=== PATIENT | female | born 1980 | race Caucasian/White ===

== ENCOUNTER 2019-02-18 08:21 | Outpatient (CLI) | payer MEDICAID ==
[2019-02-18 12:49] LABS: ALBUMIN 3.8 g/dL (3.2-5.5); ALBUMIN/GLOBULIN RATIO 1.1 (1.0-2.2); ALKALINE PHOSPHATASE 50 IU/L (42-121); ALT ALANINE AMINOTRANSFERASE 14 IU/L (10-60); AST ASPARTATE AMINOTRANSFERASE 14 IU/L (10-42); BILIRUBIN,TOTAL 0.6 mg/dL (0.2-1.0); BUN - BLOOD UREA NITROGEN 17 mg/dL (6-20); CARBON DIOXIDE - CO2 24 mmol/L (21-32); CHLORIDE 107 mmol/L (101-111); CHOL/HDL RATIO 3.2 (<4.4); CHOLESTEROL 163 mg/dL; CREATININE 0.4 mg/dL (0.4-1.0); GFR - MDRD 181 (>89); GLUCOSE 96 mg/dL (70-100); HDL CHOLESTEROL 51 mg/dL; LDL CHOLESTEROL,CALCULATED 104 mg/dL; SODIUM 139 mmol/L (135-145); TOTAL PROTEIN 7.2 g/dL (6.7-8.2); VLDL CHOLESTEROL 8 mg/dL
[2019-02-18 13:00] LABS: BASOPHILS # (AUTO) 0.1 10^3/uL (0.0-0.1); BASOPHILS % (AUTO) 1.3 %; EOSINOPHILS # (AUTO) 0.3 10^3/uL (0.0-0.7); EOSINOPHILS % (AUTO) 4.7 %; HGB - HEMOGLOBIN 12.8 g/dL (12.0-16.0); LYMPHOCYTES # (AUTO) 1.8 10^3/uL (1.5-3.5); LYMPHOCYTES % (AUTO) 30.6 %; MEAN CORPUSCULAR HEMOGLOBIN 24.8 pg (27.0-31.0); MEAN CORPUSCULAR HGB CONC 32.5 g/dL (32.0-36.0); MEAN CORPUSCULAR VOLUME 76.3 fL (81.0-99.0); MEAN PLATELET VOLUME 8.3 fL (7.9-10.8); MONOCYTES # (AUTO) 0.5 10^3/uL (0.0-1.0); MONOCYTES % (AUTO) 8.8 %; NEUTROPHILS # (AUTO) 3.3 10^3/uL (1.5-6.6); NEUTROPHILS % (AUTO) 54.6 %; PLT - PLATELET COUNT 318 10^3/uL (130-450); RED BLOOD COUNT 5.16 10^6/uL (4.20-5.40)
== END 2019-02-18 23:59 | disposition home or self-care (01) ==
LOC: LAB.N 08:21
PROVIDERS: ATTEND Nurse Practitioner
DX: R03.0 Elevated blood-pressure reading, without diagnosis of hypertension (principal)
CPT/HCPCS: 36415; 80053; 80061; 83721; 85025

== ENCOUNTER 2019-07-22 08:00 | Outpatient (CLI) | payer MEDICAID | END 2019-07-22 23:59 | disposition home or self-care (01) | LOC: LAB.R 08:00 | PROVIDERS: ATTEND Nurse Practitioner Gerontology | DX: L30.4 Erythema intertrigo (principal) | CPT/HCPCS: 87070; 87181; 87205 ==

== ENCOUNTER 2019-09-01 08:00 | Outpatient (CLI) | payer MEDICAID | END 2019-09-01 23:59 | disposition home or self-care (01) | LOC: LAB.R 08:00 | PROVIDERS: ATTEND Nurse Practitioner Gerontology | DX: R30.0 Dysuria (principal) | CPT/HCPCS: 87077; 87086 ==

== ENCOUNTER 2019-10-28 08:00 | Outpatient (CLI) | payer MEDICAID | END 2019-10-28 23:59 | disposition home or self-care (01) | LOC: LAB.R 08:00 | PROVIDERS: ATTEND Nurse Practitioner Gerontology | DX: N39.0 Urinary tract infection, site not specified (principal) | CPT/HCPCS: 87086; 87181 ==

== ENCOUNTER 2019-11-10 08:01 | Outpatient (CLI) | payer MEDICAID | END 2019-11-10 23:59 | disposition home or self-care (01) | LOC: LAB.R 08:01 | PROVIDERS: ATTEND Nurse Practitioner Gerontology | DX: N39.0 Urinary tract infection, site not specified (principal) | CPT/HCPCS: 87086 ==

== ENCOUNTER 2019-12-12 08:00 | Outpatient (CLI) | payer MEDICAID | END 2019-12-12 23:59 | disposition home or self-care (01) | LOC: LAB.R 08:00 | PROVIDERS: ATTEND Physician Assistant Medical | DX: L97.309 Non-pressure chronic ulcer of unspecified ankle with unspecified severity (principal); L03.115 Cellulitis of right lower limb | CPT/HCPCS: 87070; 87181; 87205 ==

== ENCOUNTER 2019-12-26 07:00 | Outpatient (CLI) | payer MEDICAID | END 2019-12-26 23:59 | disposition home or self-care (01) | LOC: LAB.R 07:00 | PROVIDERS: ATTEND Physician Assistant Medical | DX: L97.409 Non-pressure chronic ulcer of unspecified heel and midfoot with unspecified severity (principal) | CPT/HCPCS: 87070; 87205 ==

== ENCOUNTER 2020-01-13 07:00 | Outpatient (CLI) | payer MEDICAID ==
[2020-01-13 19:01] LABS: BILIRUBIN,URINE NEGATIVE (NEGATIVE); GLUCOSE, URINE (UA) NEGATIVE (NEGATIVE); KETONES,URINE (UA) 15 mg/dL (NEGATIVE); LEUKOCYTE ESTERASE, URINE LARGE (NEGATIVE); NITRITE,URINE POSITIVE (NEGATIVE); OCCULT BLOOD,URINE LARGE (NEGATIVE); PH,URINE 6.5 PH (5.0-7.5); PROTEIN,URINE TRACE mg/dL (NEGATIVE); UROBILINOGEN,URINE 0.2 (NORMAL) E.U./dL (NORMAL)
[2020-01-13 19:10] LABS: CLARITY,URINE HAZY (CLEAR)
[2020-01-13 19:31] LABS: BACTERIA,URINE Few /HPF (None Seen); SQUAMOUS EPITHELIAL CELL,UR NONE SEEN (<= Few); WBC CLUMPS,URINE PRESENT
== END 2020-01-13 23:59 | disposition home or self-care (01) ==
LOC: LAB.R 07:00
PROVIDERS: ATTEND Physician Assistant Medical
DX: N39.0 Urinary tract infection, site not specified (principal)
CPT/HCPCS: 81001; 87086; 87181

== ENCOUNTER 2020-08-22 18:41 | Emergency (ER) | payer MEDICAID ==
[2020-08-22 20:13] LABS: BASOPHILS # (AUTO) 0.1 10^3/uL (0.0-0.1); BASOPHILS % (AUTO) 0.9 %; EOSINOPHILS # (AUTO) 0.1 10^3/uL (0.0-0.7); EOSINOPHILS % (AUTO) 1.2 %; HGB - HEMOGLOBIN 12.5 g/dL (12.0-16.0); LYMPHOCYTES # (AUTO) 1.5 10^3/uL (1.5-3.5); LYMPHOCYTES % (AUTO) 18.5 %; MEAN CORPUSCULAR HEMOGLOBIN 23.3 pg (27.0-31.0); MEAN CORPUSCULAR HGB CONC 30.6 g/dL (32.0-36.0); MEAN CORPUSCULAR VOLUME 76.3 fL (81.0-99.0); MEAN PLATELET VOLUME 9.2 fL (7.9-10.8); MONOCYTES # (AUTO) 0.5 10^3/uL (0.0-1.0); MONOCYTES % (AUTO) 6.5 %; NEUTROPHILS # (AUTO) 5.9 10^3/uL (1.5-6.6); NEUTROPHILS % (AUTO) 72.4 %; PLT - PLATELET COUNT 379 10^3/uL (130-450); RED BLOOD COUNT 5.36 10^6/uL (4.20-5.40); RED CELL DISTRIBUTION WIDTH 14.8 % (12.0-15.0); WHITE BLOOD COUNT 8.1 x10^3/uL (4.8-10.8)
[2020-08-22 20:25] LABS: BILIRUBIN,TOTAL 0.5 mg/dL (0.2-1.0); CALCIUM 9.2 mg/dL (8.5-10.3); CREATININE 0.9 mg/dL (0.4-1.0); TOTAL PROTEIN 8.2 g/dL (6.7-8.2)
[2020-08-22 20:44] VITALS: BP 125/93
--- NOTE | 2020-08-22 20:57 | XRAY Report ---
PROCEDURE: Calcaneus RT INDICATIONS: non-healing wound TECHNIQUE: Two views of the calcaneus were acquired. COMPARISON: None. FINDINGS: Bones: No fractures or dislocations. No definite focal bony destruction. No suspicious bony lesions . Ulceration and soft tissue wound seen at the posterior hindfoot IMPRESSION: No focal osseous destruction to suggest advanced osteomyelitis. If there is persistent high clinical concern, serial short interval radiographic follow-up, or contrast-enhanced MRI could be performed. Reviewed by: Corby Zavaleta MD on 08/22/2020 8:56 PM PDT Approved by: Corby Zavaleta MD on 08/22/2020 8:56 PM PDT Station ID: [id number]
[2020-08-22] MEDS ORDERED: BACITRACIN ZINC OINT 1 PACKET TOP STA (21:06)
--- NOTE | 2020-08-22 21:17 | ED Physician Documentation ---
History of Present Illness - Stated complaint Stated Complaint: WOUND ON R HEEL - Chief complaint Chief Complaint: Wound - History obtained from History obtained from: Patient - History of Present Illness Timing: Chronic Pain level max: 0 Pain level now: 0 - Additonal information Additional information: 40-year-old female with spina bifida who has chronic nonhealing wounds to her feet, she is seen at wound care. Noticed the right heel wound started admitting a foul odor today. Came in for evaluation. No fevers. No chills. Nothing makes it better or worse Review of Systems Constitutional: denies: Fever, Chills GI: denies: Vomiting Skin: denies: Rash Musculoskeletal: denies: Neck pain, Back pain Neurologic: denies: Headache PD PAST MEDICAL HISTORY - Past Medical History Cardiovascular: None, Other Respiratory: None Neuro: None, Other Endocrine/Autoimmune: None GI: None BRUSH POLISHER: None : Incontinence HEENT: None Psych: None Musculoskeletal: Paraplegia Derm: None - Past Surgical History Past Surgical History: Yes Neuro: RESISTOR TESTER shunt - Present Medications Home Medications: Ambulatory Orders Medication Instructions Recorded Confirmed Aspirin [Aspirin EC] 81 mg PO DAILY 08/21/19 08/03/20 Cholecalciferol (Vitamin D3) 1,000 unit PO DAILY 08/21/19 08/03/20 [Vitamin D3] Methenamine/Sodium Salicylate [Azo 1 tab PO DAILY 08/21/19 08/03/20 Urinary Tract Defense Tab] Multivitamin [Multivitamins] 1 cap PO DAILY 08/21/19 08/03/20 Doxycycline Hyclate 100 mg PO BID #20 capsule 08/22/20 Sulfamethox/Trimeth 800/160 1 each PO BID #20 tablet 08/22/20 [Bactrim Ds 800/160] - Allergies Allergies/Adverse Reactions: Allergies Allergy/AdvReac Type Severity Reaction Status Date / Time latex Allergy Unknown Verified 08/22/20 18:59 - Social History Does the pt smoke?: No Smoking Status: Never smoker Does the pt drink ETOH?: Yes ETOH Use: Wine, Beer Does the pt have substance abuse?: No - Immunizations Immunizations are current?: Yes PD ED PE NORMAL - Vitals Vital signs reviewed: Yes - General General: Alert and oriented X 3, No acute distress - HEENT HEENT: Moist mucous membranes - Neck Neck: Supple, no meningeal sign - Cardiac Cardiac: RRR - Respiratory Respiratory: No respiratory distress, Clear bilaterally - Derm Derm: Warm and dry - Extremities Extremities: Other (R heel - 3x3cm open ulceration with yellow drainage. moderate surrounding erythema.) - Neuro Neuro: Alert and oriented X 3 Results - Vitals Vitals: Vital Signs - 24 hr 08/22/20 08/22/20 08/22/20 18:53 19:21 20:43 Temperature 37.4 C 37.3 C Heart Rate 118 H 107 H 95 Respiratory 22 16 16 Rate Blood Pressure 146/85 H 133/94 H 125/93 H O2 Saturation 100 100 100 Oxygen O2 Source Room air - Labs Labs: Microbiology 08/22/20 20:44 Wound Culture - Preliminary Foot - Right Laboratory Tests 08/22/20 08/22/20 08/22/20 20:05 20:05 20:05 WBC 8.1 RBC 5.36 Hgb 12.5 Hct 40.9 MCV 76.3 L MCH 23.3 L MCHC 30.6 L RDW 14.8 Plt Count 379 MPV 9.2 Neut # (Auto) 5.9 Lymph # (Auto) 1.5 [place] # (Auto) 0.5 Eos # (Auto) 0.1 Baso # (Auto) 0.1 Absolute Nucleated RBC 0.00 Nucleated RBC % 0.0 Sodium 140 Potassium 3.6 Chloride 107 Carbon Dioxide 24 Anion Gap 9.0 BUN 21 H Creatinine 0.9 Estimated GFR (MDRD) 70 L Glucose 101 H Lactic Acid 0.8 Calcium 9.2 Total Bilirubin 0.5 AST 12 ALT 13 Alkaline Phosphatase 65 Total Protein 8.2 Albumin 4.0 Globulin 4.2 Albumin/Globulin Ratio 1.0 Lipase 26 - Rads (name of study) R foot xray Radiology: Prelim report reviewed, EMP read contemporaneously PD MEDICAL DECISION MAKING - ED course Complexity details: reviewed results, re-evaluated patient, considered differential, d/w patient ED course: Wounds were cleansed and bandaged. Tolerated well. We will place on antibiotics. Mepitel was placed over the ulceration. Bacitracin was applied as well. Reviewed her old wound cultures to determine which antibiotics. Doxycycline and Bactrim appear most likely to cover her infection. She has an appointment on Sunday with the [facility] [place]. No evidence of sepsis. Patient counseled regarding signs and symptoms for which I believe and urgent re- evaluation would be necessary. Patient with good understanding of and agreement to plan and is comfortable going home at this time This document was made in part using voice recognition software. While efforts are made to proofread this document, sound alike and grammatical errors may occur. No osteomyelitis No focal osseous destruction to suggest advanced osteomyelitis. If there is persistent high clinical concern, serial short interval radiographic follow-up, or contrast- enhanced MRI could be performed. Departure - Departure Disposition: Home, Self Care Clinical Impression: Non-pressure chronic ulcer of other part of right foot with fat layer exposed, Cellulitis of right lower limb Condition: Good Instructions: ED Infec Skin Cellulitis Follow-Up: Eduar Harris MD [Primary Care Provider] - Within 3 Days Prescriptions: Sulfamethox/Trimeth 800/160 [Bactrim Ds 800/160] 1 each PO BID #20 tablet Doxycycline Hyclate 100 mg PO BID #20 capsule Comments: Take all antibiotics until gone Follow up with the [facility] clinic on Sunday for recheck. Return if you worsen. Discharge Date/Time: 08/22/20 21:28
== END 2020-08-22 21:28 | disposition home or self-care (01) ==
LOC: ED 18:41
DX: L97.412 Non-pressure chronic ulcer of right heel and midfoot with fat layer exposed (principal); L03.115 Cellulitis of right lower limb; G82.20 Paraplegia, unspecified
CPT/HCPCS: 36415; 73650; 80053; 83605; 83690; 85025; 87040; 87070; 87205; 99284; A9270; 87077; 87181

== ENCOUNTER 2020-11-25 16:33 | Emergency (ER) | payer MEDICAID ==
[2020-11-25 17:08] LABS: BASOPHILS # (AUTO) 0.1 10^3/uL (0.0-0.1); EOSINOPHILS # (AUTO) 0.3 10^3/uL (0.0-0.7); HGB - HEMOGLOBIN 12.1 g/dL (12.0-16.0); LYMPHOCYTES # (AUTO) 2.7 10^3/uL (1.5-3.5); MEAN CORPUSCULAR HEMOGLOBIN 24.3 pg (27.0-31.0); MEAN CORPUSCULAR HGB CONC 31.7 g/dL (32.0-36.0); MEAN CORPUSCULAR VOLUME 76.9 fL (81.0-99.0); MEAN PLATELET VOLUME 9.4 fL (7.9-10.8); MONOCYTES # (AUTO) 0.6 10^3/uL (0.0-1.0); MONOCYTES % (AUTO) 7.6 %; NEUTROPHILS # (AUTO) 4.1 10^3/uL (1.5-6.6); NEUTROPHILS % (AUTO) 52.1 %; PLT - PLATELET COUNT 296 10^3/uL (130-450); RED BLOOD COUNT 4.97 10^6/uL (4.20-5.40); WHITE BLOOD COUNT 7.8 x10^3/uL (4.8-10.8)
[2020-11-25 17:14] LABS: INR 1.2 (0.8-1.2); PT - PROTHROMBIN TIME 13.6 secs (9.9-12.6)
--- NOTE | 2020-11-25 17:15 | ED Physician Documentation ---
History of Present Illness - Stated complaint Stated Complaint: LEFT LEG IS COLD AND PURPLE - Chief complaint Chief Complaint: Ext Problem - History obtained from History obtained from: Patient - Additonal information Additional information: Patient is sent to the emergency department from wound care clinic after her physician there, Dr. Dewey, noted the patient's foot to a left foot to be cold and cyanotic in appearance. He could not get a pulse on the patient and so he is sent her here for further evaluation. The patient is a paraplegic, secondary to spina bifida, and states that she does not really have any feeling in the foot. Patient states that she has noticed the foot intermittently having a bluish-purple appearance, and that this does not seem much different than previously. No she denies feeling ill in any other way. No swelling of the leg but is unusual. No other complaints at this time. Review of Systems Ten Systems: 10 systems reviewed and negative Constitutional: reports: Reviewed and negative Eyes: reports: Reviewed and negative Ears: reports: Reviewed and negative Nose: reports: Reviewed and negative Throat: reports: Reviewed and negative Cardiac: reports: Reviewed and negative Respiratory: reports: Reviewed and negative GI: reports: Reviewed and negative : reports: Reviewed and negative Skin: reports: Other (Discoloration) Musculoskeletal: reports: Reviewed and negative Neurologic: reports: Reviewed and negative Psychiatric: reports: Reviewed and negative Endocrine: reports: Reviewed and negative Immunocompromised: reports: Reviewed and negative PD PAST MEDICAL HISTORY - Past Medical History Cardiovascular: None, Other Respiratory: None Neuro: None, Other Endocrine/Autoimmune: None GI: None BIOLOGY LABORATORY ASSISTANT: None : Incontinence HEENT: None Psych: None Musculoskeletal: Paraplegia Derm: None - Past Surgical History Past Surgical History: Yes Neuro: FLOORS BUFFER shunt - Present Medications Home Medications: Ambulatory Orders Medication Instructions Recorded Confirmed Aspirin [Aspirin EC] 81 mg PO DAILY 08/21/19 11/18/20 Cholecalciferol (Vitamin D3) 1,000 unit PO DAILY 08/21/19 11/18/20 [Vitamin D3] Methenamine/Sodium Salicylate [Azo 1 tab PO DAILY 08/21/19 11/18/20 Urinary Tract Defense Tab] Multivitamin [Multivitamins] 1 cap PO DAILY 08/21/19 11/18/20 Calcium Carbonate [Calcium] 500 mg PO DAILY 09/06/20 11/18/20 - Allergies Allergies/Adverse Reactions: Allergies Allergy/AdvReac Type Severity Reaction Status Date / Time latex Allergy Unknown Verified 11/25/20 16:42 - Social History Does the pt smoke?: No Smoking Status: Never smoker Does the pt drink ETOH?: Yes Does the pt have substance abuse?: No - Immunizations Immunizations are current?: Yes PD ED PE NORMAL - Vitals Vital signs reviewed: Yes - General General: Alert and oriented X 3, No acute distress - HEENT HEENT: Atraumatic, PERRL, EOMI, Moist mucous membranes - Neck Neck: Supple, no meningeal sign - Cardiac Cardiac: RRR, No murmur, Other (No palpable pulses in either foot.) - Respiratory Respiratory: No respiratory distress, Clear bilaterally - Abdomen Abdomen: Soft, Non tender, Non distended - Derm Derm: No rash, Other (Left foot is cold, with purplish discoloration. Normal color above the ankle compared with the right leg.) - Extremities Extremities: No deformity - Neuro Neuro: Alert and oriented X 3 - Psych Psych: Normal mood, Normal affect Results - Vitals Vitals: Vital Signs - 24 hr 11/25/20 11/25/20 16:35 18:58 Temperature 37 C 37.9 C Heart Rate 122 H 110 H Respiratory 17 20 Rate Blood Pressure 157/64 H 131/108 H O2 Saturation 100 100 Oxygen O2 Source Room air - Labs Labs: Laboratory Tests 11/25/20 11/25/20 11/25/20 17:02 17:02 17:02 WBC 7.8 RBC 4.97 Hgb 12.1 Hct 38.2 MCV 76.9 L MCH 24.3 L MCHC 31.7 L RDW 16.0 H Plt Count 296 MPV 9.4 Neut # (Auto) 4.1 Lymph # (Auto) 2.7 [place] # (Auto) 0.6 Eos # (Auto) 0.3 Baso # (Auto) 0.1 Absolute Nucleated RBC 0.00 Nucleated RBC % 0.0 PT INR Sodium 142 Potassium 3.6 Chloride 103 Carbon Dioxide 22 Anion Gap 17.0 H BUN 17 Creatinine 0.4 Estimated GFR (MDRD) 179 Glucose 88 Lactic Acid 0.8 Calcium 9.1 Total Bilirubin 0.7 AST 14 ALT 14 Alkaline Phosphatase 54 Total Protein 7.3 Albumin 3.9 Globulin 3.4 Albumin/Globulin Ratio 1.1 11/25/20 17:02 WBC RBC Hgb Hct MCV MCH MCHC RDW Plt Count MPV Neut # (Auto) Lymph # (Auto) [place] # (Auto) Eos # (Auto) Baso # (Auto) Absolute Nucleated RBC Nucleated RBC % PT 13.6 H INR 1.2 Sodium Potassium Chloride Carbon Dioxide Anion Gap BUN Creatinine Estimated GFR (MDRD) Glucose Lactic Acid Calcium Total Bilirubin AST ALT Alkaline Phosphatase Total Protein Albumin Globulin Albumin/Globulin Ratio - Rads (name of study) US LLE Radiology: Final report received, See rad report (No DVT) PD MEDICAL DECISION MAKING - ED course Complexity details: reviewed old records, reviewed results, re-evaluated patient, considered differential, d/w patient ED course: The patient did not have palpable pulses in her left foot, so I did attempt to find pulses with the Doppler. However, this was unsuccessful. An ultrasound of the patient's left lower extremity was performed and no DVT was found. The optics technical officer reported seeing a tiny bit of arterial flow in the patient's fo ot. The patient's labs were unremarkable, with a normal white blood cell count and normal lactate. CT angiogram of the abdomen with runoffs was performed and showed patent arteries all through the right lower extremity, but with decreasing patency distal to the popliteal artery. The patient was given a dose of Lovenox. The acuity of the occlusion/thrombosis was unclear, and as such, it was felt that vascular specialist should be consulted for further management recommendations. At this point in time, the patient's been signed out to Dr. Presley, pending vascular consultation and ultimate disposition. Patient is stable at this time.
[2020-11-25 17:21] LABS: ALBUMIN 3.9 g/dL (3.2-5.5); ALBUMIN/GLOBULIN RATIO 1.1 (1.0-2.2); BILIRUBIN,TOTAL 0.7 mg/dL (0.2-1.0); CALCIUM 9.1 mg/dL (8.5-10.3); CREATININE 0.4 mg/dL (0.4-1.0); TOTAL PROTEIN 7.3 g/dL (6.7-8.2)
[2020-11-25] MEDS ORDERED: IOVERSOL 320 100 ML VIAL IVP ONE ×2 (18:06→20:07)
--- NOTE | 2020-11-25 18:07 | Ultrasound Report ---
PROCEDURE: Duplex Ext Veins Left INDICATIONS: pain/swelling TECHNIQUE: Real-time imaging, as well as color and pulse Doppler interrogation, were performed of the lower extr emity deep veins from the inguinal ligament to the popliteal fossa. COMPARISON: None. FINDINGS: Examination is limited secondary to patient mobility factors. There is a 14 mm ill-defined hypoechoic focus within the medial ankle. The deep veins are normally compressible, and free of intra luminal thrombus. Color and pulse Doppler demonstrate normal phasic intraluminal flow. There is nor mal augmentation response to distal compression maneuver. IMPRESSION: 1. No evidence of left lower extremity DVT. 2. Indeterminate hypoechoic focus within the medial ankle. This could represent an abscess or evolvin g hematoma. Follow-up ultrasound in one month is recommended to ensure resolution. Reviewed by: Preeti Collazo MD on 11/25/2020 6:06 PM [facility] Approved by: Preeti Collazo MD on 11/25/2020 6:06 PM [facility] Station ID: [id number]
--- NOTE | 2020-11-25 19:04 | CT Report ---
PROCEDURE: ANGIO ABD RUNOFF W/WO - B/L INDICATIONS: LLE cold, pulse undetectable CONTRAST: IV CONTRAST: Optiray 320 ml: 125 PO CONTRAST: *NO PO CONTRAST TECHNIQUE: After the administration of intravenous contrast, 2 and 5 mm sections acquired from T12 to the feet, with optional delayed image acquisition from the knees to the feet. 3-dimensional maximum intensity projection (MIP) coronal and sagittal reformats, and/or 3-dimensional volume rendering reformatting w as then performed. For radiation dose reduction, the following was used: automated exposure control , adjustment of mA and/or kV according to patient size. COMPARISON: None. FINDINGS: Image quality: Excellent. 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 Extravascular tissues: Lung bases are clear. Heart size is normal. Liver and spleen are normal in size and enhancement. Gallbladder is grossly unremarkable Biliary system is non dilated. Pancreas enhances normally. No adrenal nodules. Kidneys are normal in size and enhancement. Moderate left hy dronephrosis. Left renal pelvic calculus measuring 10 mm. Non opacified bowel loops demonstrate norm al wall thickness and enhancement. No pneumoperitoneum. Small amount of free fluid within the pelvis . Peritoneal catheter is present, tip of which is in the left hemipelvis laterally.. No retroperiton eal or mesenteric adenopathy. No ventral hernias. Severe urinary bladder wall thickening. 7 mm calcu dread within the left posterior urinary bladder. 3 mm calculus within the right posterior urinary bladd er. No inguinal hernias. Right inguinal adenopathy is present, measuring 11 mm short axis. No suspici ous bony lesions. No vertebral body compression fractures. Abdominal aorta: Widely patent without aneurysm nor dissection. Right lower extremity: Common, internal, and axial iliac arteries are patent. Common, profunda, and superficial femoral arteries are patent. Above and below knee popliteal artery is patent. Anterior ti bial artery, tibioperoneal trunk, peroneal and posterior tibial arteries are patent. Scattered region s of bony deformity and sclerosis within the foot. Left lower extremity: Common, internal, and external iliac arteries are patent. Common, profunda, an d superficial femoral arteries are patent. Above and below knee popliteal artery is patent. Variant t rifurcation anatomy. Tibial peroneal trunk gives rise to the anterior tibial and peroneal arteries. D istal anterior tibial and peroneal arteries are not well seen, possibly occluded. Peroneal artery is not well seen distally. IMPRESSION: 1. Left renal pelvic calculus associated with moderate left hydronephrosis. 2. Urinary bladder calculi. 3. Urinary bladder thickening, suggestive of cystitis. 4. No significant inflow stenosis bilaterally. 5. No significant outflow stenosis bilaterally. 6. Patent right runoff vessels. 7. Nonopacification of the distal left-sided runoff vessels, compatible with occlusion/thrombus. 8. Extensive bony deformity as described above. 9. Small amount of free fluid within the pelvis, within physiological limits in a demonstrating femal e. Reviewed by: Preeti Collazo MD on 11/25/2020 7:02 PM PST Approved by: Preeti Collazo MD on 11/25/2020 7:02 PM PST Station ID: [id number]
[2020-11-25] MEDS ORDERED: ENOXAPARIN 40 MG/0.4 ML SYRINGE SUBQ STA (19:36)
--- NOTE | 2020-11-25 20:22 | ED Physician Documentation ---
ED Addendum - Addendum Addendum: 11/25/20 20:22 Patient endorsed to me by Dr. Chacon. She is no acute distress. Pulse not palpable in the left lower extremity. Discussed results with patient and we are awaiting vascular recommendations from [facility]. 11/25/20 20:39 d/w Dr. Angel Nevarez, vascular surgery at [place] - since patient states the LLE swelling/erythema is old and there doesn't appear to be an acute issue, she may follow up in clinic tomorrow morning. Patient aware and agreeable. I also discussed with her that she has asymptomatic renal/urinary bladder stones. return precautions given.
[2020-11-25 21:02] VITALS: BP 121/88
--- OUTSIDE RECORDS SUMMARY | 2020-12-01 01:19 | EXTERNAL MEDICAL SUMMARY RPT | Continuity of Care Document ---
:1980 Demographics Phone Unavailable Preferred Language Niuean Marital Status Unknown Anabaptist Affiliation Unknown Race Unknown Ethnic Group Unknown Author Organization [facility] Address [address] [place] [address] Phone Care Team Providers Name Role Phone MD Unavailable Unavailable Demmler Unavailable Unavailable Problems date description facility 2020-09-03 13:00 METHICILLIN [facility] CAUSING DIS CLASSD [facility] 2020-09-03 13:00 KLEBSIELLA PNEUMONIAE [facility] CAUSE OF DISEASES CLASSD [facility] 2020-09-03 13:00 VENOUS INSUFFICIENCY (CHRONIC) [facility] ([facility]) 2020-09-03 13:00 CELLULITIS OF RIGHT LOWER LIMB [facility] 2020-09-03 13:00 NON-PRS CHR ULC OF R HEEL/[facility] W MSL INVL W/O EVD OF [place] 2020-09-03 13:00 NON-PRS CHRONIC ULCER OTH [facility] LEFT FOOT W FAT LAYER EXPOSED 2020-09-06 14:30 METHICILLIN [facility] CAUSING DIS CLASSD [facility] 2020-09-06 14:30 KLEBSIELLA PNEUMONIAE [facility] CAUSE OF DISEASES CLASSD [facility] 2020-09-06 14:30 VENOUS INSUFFICIENCY (CHRONIC) [facility] ([facility]) 2020-09-06 14:30 CELLULITIS OF RIGHT LOWER LIMB [facility] 2020-09-06 14:30 NON-PRS CHR ULC OF R HEEL/MIDFT [facility] W MSL INVL W/O EVD OF [place] 2020-09-06 14:30 NON-PRS CHRONIC ULCER OTH [facility] LEFT FOOT W FAT LAYER EXPOSED 2020-09-09 15:30 METHICILLIN [facility] CAUSING DIS CLASSD [facility] 2020-09-09 15:30 KLEBSIELLA PNEUMONIAE [facility] CAUSE OF DISEASES CLASSD [facility] 2020-09-09 15:30 VENOUS INSUFFICIENCY (CHRONIC) [facility] ([facility]) 2020-09-09 15:30 CELLULITIS OF RIGHT LOWER LIMB [facility] 2020-09-09 15:30 NON-PRS CHR ULC OF R HEEL/MIDFT [facility] W MSL INVL W/O EVD OF [place] 2020-09-09 15:30 NON-PRS CHRONIC ULCER OTH PRT [facility] LEFT FOOT W FAT LAYER EXPOSED 2020-09-14 10:15 [facility] 2020-09-14 10:15 KLEBSIELLA PNEUMONIAE [facility] 2020-09-14 10:15 VENOUS INSUFFICIENCY (CHRONIC) [facility] ([facility]) 2020-09-14 10:15 CELLULITIS OF RIGHT LOWER LIMB [facility] 2020-09-14 10:15 NON-PRS CHR ULC OF R HEEL/[facility] W MSL INVL W/O EVD OF [place] 2020-09-14 10:15 NON-PRS CHRONIC ULCER OTH [facility] LEFT FOOT W FAT LAYER EXPOSED 2020-09-17 10:00 METHICILLIN SUSCEP STAPH [facility] CAUSING DIS CLASSD [facility] 2020-09-17 10:00 KLEBSIELLA PNEUMONIAE [facility] 2020-09-17 10:00 VENOUS INSUFFICIENCY (CHRONIC) [facility] ([facility]) 2020-09-17 10:00 CELLULITIS OF RIGHT LOWER LIMB [facility] 2020-09-17 10:00 NON-PRS [facility]/O EVD OF [place] 2020-09-17 10:00 NON-PRS CHRONIC ULCER OTH WVT [facility] LEFT FOOT W FAT LAYER EXPOSED 2020-09-21 13:00 METHICILLIN SUSCEP STAPH INFCT [facility] CAUSING DIS CLASSD [facility] 2020-09-21 13:00 KLEBSIELLA PNEUMONIAE [facility] CAUSE OF DISEASES CLASSD [facility] 2020-09-21 13:00 VENOUS INSUFFICIENCY (CHRONIC) [facility] ([facility]) 2020-09-21 13:00 CELLULITIS OF RIGHT LOWER LIMB [facility] 2020-09-21 13:00 NON-PRS CHR ULC OF R HEEL/MIDFT [facility] W MSL INVL W/O EVD OF [place] 2020-09-21 13:00 NON-PRS CHRONIC ULCER OTH [facility] LEFT FOOT W FAT LAYER EXPOSED 2020-09-24 13:00 METHICILLIN SUSCEP STAPH [facility] CAUSING DIS CLASSD [facility] 2020-09-24 13:00 KLEBSIELLA PNEUMONIAE [facility] CAUSE OF DISEASES CLASSD [facility] 2020-09-24 13:00 VENOUS INSUFFICIENCY (CHRONIC) [facility] ([facility]) 2020-09-24 13:00 CELLULITIS OF RIGHT LOWER LIMB [facility] 2020-09-24 13:00 NON-PRS CHR ULC OF R HEEL/MIDFT [facility] W MSL INVL W/O EVD OF [place] 2020-09-24 13:00 NON-PRS CHRONIC ULCER OTH [facility] LEFT FOOT W FAT LAYER EXPOSED 2020-09-28 15:30 METHICILLIN SUSCEP STAPH [facility] CAUSING DIS CLASSD [facility] 2020-09-28 15:30 KLEBSIELLA PNEUMONIAE [facility] CAUSE OF DISEASES CLASSD [facility] 2020-09-28 15:30 VENOUS INSUFFICIENCY (CHRONIC) [facility] ([facility]) 2020-09-28 15:30 CELLULITIS OF RIGHT LOWER LIMB [facility] 2020-09-28 15:30 NON-PRS CHR ULC OF R HEEL/[facility] W MSL INVL W/O EVD OF [place] 2020-09-28 15:30 NON-PRS CHRONIC ULCER OTH PRT [facility] LEFT FOOT W FAT LAYER EXPOSED 2020-10-01 13:00 [facility] 2020-10-01 13:00 KLEBSIELLA PNEUMONIAE [facility] CAUSE OF DISEASES CLASSD [facility] 2020-10-01 13:00 VENOUS INSUFFICIENCY (CHRONIC) [facility] ([facility]) 2020-10-01 13:00 CELLULITIS OF RIGHT LOWER LIMB [facility] 2020-10-01 13:00 NON-PRS CHR ULC OF R HEEL/MIDFT [facility] W MSL INVL W/O EVD OF [place] 2020-10-01 13:00 NON-PRS CHRONIC ULCER OTH [facility] LEFT FOOT W FAT LAYER EXPOSED 2020-10-05 14:45 METHICILLIN SUSCEP [facility] CAUSING DIS CLASSD [facility] 2020-10-05 14:45 KLEBSIELLA PNEUMONIAE THE [facility] CAUSE OF DISEASES CLASSD [facility] 2020-10-05 14:45 VENOUS INSUFFICIENCY (CHRONIC) [facility] ([facility]) 2020-10-05 14:45 CELLULITIS OF RIGHT LOWER LIMB [facility] 2020-10-05 14:45 NON-PRS [facility] W/O EVD OF [place] 2020-10-05 14:45 NON-PRS CHRONIC ULCER OTH WVT [facility] LEFT FOOT W FAT LAYER EXPOSED 2020-10-08 10:00 [facility]IN [facility] 2020-10-08 10:00 KLEBSIELLA PNEUMONIAE [facility] CAUSE OF DISEASES CLASSD [facility] 2020-10-08 10:00 VENOUS INSUFFICIENCY (CHRONIC) [facility] ([facility]) 2020-10-08 10:00 CELLULITIS OF RIGHT LOWER LIMB [facility] 2020-10-08 10:00 NON-PRS CHR ULC OF R HEEL/MIDFT [facility] W MSL INVL W/O EVD OF [place] 2020-10-08 10:00 NON-PRS CHRONIC ULCER OTH PRT [facility] LEFT FOOT W FAT LAYER EXPOSED 2020-10-12 14:15 METHICILLIN SUSCEP STAPH INFCT [facility] CAUSING DIS CLASSD [facility] 2020-10-12 14:15 KLEBSIELLA PNEUMONIAE [facility] CAUSE OF DISEASES CLASSD [facility] 2020-10-12 14:15 VENOUS INSUFFICIENCY (CHRONIC) [facility] ([facility]) 2020-10-12 14:15 CELLULITIS OF RIGHT LOWER LIMB [facility] 2020-10-12 14:15 NON-PRS CHR ULC OF R HEEL/MIDFT [facility] W MSL INVL W/O EVD OF [place] 2020-10-12 14:15 NON-PRS CHRONIC ULCER OTH [facility] LEFT FOOT W FAT LAYER EXPOSED 2020-10-20 13:39 [facility]ILLIN [facility] 2020-10-20 13:39 KLEBSIELLA PNEUMONIAE [facility] CAUSE OF DISEASES CLASSD [facility] 2020-10-20 13:39 VENOUS INSUFFICIENCY (CHRONIC) [facility] ([facility]) 2020-10-20 13:39 CELLULITIS OF RIGHT LOWER LIMB [facility] 2020-10-20 13:39 NON-PRS CHR ULC OF R HEEL/MIDFT [facility] W MSL INVL W/O EVD OF [place] 2020-10-20 13:39 NON-PRS CHRONIC ULCER OTH WVT [facility] LEFT FOOT W FAT LAYER EXPOSED 2020-10-20 14:00 METHICILLIN SUSCEP STAPH [facility] CAUSING DIS CLASSD [facility] 2020-10-20 14:00 KLEBSIELLA PNEUMONIAE [facility] CAUSE OF DISEASES CLASSD [facility] 2020-10-20 14:00 VENOUS INSUFFICIENCY (CHRONIC) [facility] ([facility]) 2020-10-20 14:00 CELLULITIS OF RIGHT LOWER LIMB [facility] 2020-10-20 14:00 NON-PRS CHR ULC OF R HEEL/MIDFT [facility] W MSL INVL W/O EVD OF [place] 2020-10-20 14:00 NON-PRS CHRONIC ULCER OTH PRT [facility] LEFT FOOT W FAT LAYER EXPOSED 2020-10-26 00:00:00 Health-related behavior [facility] 2020-10-26 00:00:00 Tobacco use and exposure [facility] [place] 2020-10-26 00:00:00 Exercise [facility] 2020-10-26 00:00[facility]00 [facility] 2020-10-26 00:00:[facility] 2020-10-26 00:00:00 Tobacco smoking status NHIS [facility] [place] [facility] 2020-10-26 00:00:00 Total score? [facility] 2020-10-27 15:00 METHICILLIN SUSCEP [facility] CAUSING DIS CLASSD [facility] 2020-10-27 15:00 KLEBSIELLA PNEUMONIAE [facility] CAUSE OF DISEASES CLASSD [facility] 2020-10-27 15:00 VENOUS INSUFFICIENCY (CHRONIC) [facility] ([facility]) 2020-10-27 15:00 CELLULITIS OF RIGHT LOWER LIMB [facility] 2020-10-27 15:00 NON-PRS CHR ULC OF R HEEL/MIDFT [facility] W MSL INVL W/O EVD OF [place] 2020-10-27 15:00 NON-PRS CHRONIC ULCER OTH PRT [facility] LEFT FOOT W FAT LAYER EXPOSED 2020-11-03 11:00 [facility] 2020-11-03 11:00 KLEBSIELLA PNEUMONIAE [facility] CAUSE OF DISEASES CLASSD [facility] 2020-11-03 11:00 VENOUS INSUFFICIENCY (CHRONIC) [facility] ([facility]) 2020-11-03 11:00 CELLULITIS OF RIGHT LOWER LIMB [facility] 2020-11-03 11:00 NON-PRS CHR ULC OF R HEEL/MIDFT [facility] W MSL INVL W/O EVD OF [place] 2020-11-03 11:00 NON-PRS CHRONIC ULCER OTH PRT [facility] LEFT FOOT W FAT LAYER EXPOSED 2020-11-10 14:30 [facility] 2020-11-10 14:30 KLEBSIELLA PNEUMONIAE [facility] CAUSE OF DISEASES CLASSD [facility] 2020-11-10 14:30 VENOUS INSUFFICIENCY (CHRONIC) [facility] ([facility]) 2020-11-10 14:30 CELLULITIS OF RIGHT LOWER LIMB [facility] 2020-11-10 14:30 NON-PRS CHR ULC OF R HEEL/[facility] W MSL INVL W/O EVD OF [place] 2020-11-10 14:30 NON-PRS CHRONIC ULCER OTH [facility] LEFT FOOT W FAT LAYER EXPOSED 2020-11-18 13:00 [facility] 2020-11-18 13:00 KLEBSIELLA PNEUMONIAE [facility] CAUSE OF DISEASES CLASSD [facility] 2020-11-18 13:00 VENOUS INSUFFICIENCY (CHRONIC) [facility] ([facility]) 2020-11-18 13:00 CELLULITIS OF RIGHT LOWER LIMB [facility] 2020-11-18 13:00 NON-PRS CHR ULC OF R HEEL/MIDFT [facility] W MSL INVL W/O EVD OF [place] 2020-11-18 13:00 NON-PRS CHRONIC ULCER OTH PRT [facility] LEFT FOOT W FAT LAYER EXPOSED 2020-11-25 14:00 METHICILLIN SUSCEP STAPH [facility] CAUSING DIS CLASSD [facility] 2020-11-25 14:00 KLEBSIELLA PNEUMONIAE [facility] 2020-11-25 14:00 VENOUS INSUFFICIENCY (CHRONIC) [facility] ([facility]) 2020-11-25 14:00 CELLULITIS OF RIGHT LOWER LIMB [facility] 2020-11-25 14:00 NON-PRS [facility] W MSL INVL W/O EVD OF [place] 2020-11-25 14:00 NON-PRS CHRONIC ULCER OTH PRT [facility] LEFT FOOT W FAT LAYER EXPOSED 2020-11-25 14:54 METHICILLIN SUSCEP STAPH INFCT [facility] CAUSING DIS CLASSD [facility] 2020-11-25 14:54 KLEBSIELLA PNEUMONIAE [facility] CAUSE OF DISEASES CLASSD [facility] 2020-11-25 14:54 VENOUS INSUFFICIENCY (CHRONIC) [facility] ([facility]) 2020-11-25 14:54 CELLULITIS OF RIGHT LOWER LIMB [facility] 2020-11-25 14:54 NON-PRS CHR [facility] W MSL INVL W/O EVD OF [place] 2020-11-25 14:54 NON-PRS CHRONIC ULCER OTH PRT [facility] LEFT FOOT W FAT LAYER EXPOSED Allergies date description facility IODINATED DIAGNOSTIC AGENTS [facility] AMOXICILLIN-POT CLAVULANATE [facility] SEASONAL [facility] ADHESIVE \T\ TAPE [facility] AMLODIPINE [facility] BACITRACIN [facility] BEE VENOM [facility] BENAZEPRIL [facility] CEFACLOR [facility] DIMENHYDRINATE [facility] DOXEPIN [facility] D[facility]OXETINE [facility] FLUTICASONE [facility]IONATE [facility] LAMOTRIGINE [facility] LITHIUM [facility] LOSARTAN [facility] METOPROLOL [facility] NAPROXEN [facility] NEOMYCIN [facility] NICKEL [facility] POLLEN EXTRACT [facility] QUETIAPINE [facility] RISPERIDONE [facility] SULFAMETHOXAZOLE-TRIMETHOPRIM [facility] SUMATRIPTAN [facility] TRAZODONE [facility] VARENICLINE [facility] VENLAFAXINE [facility] WASP VENOM PROTEIN [facility] ERYTHROMYCIN ETHYLSUCCINATE [facility] PAMELOR [facility] NO KNOWN ENVIRONMENTAL ALLERGIES [facility] PENICILLINS [facility] STATINS [facility] CELERY [facility] CODEINE [facility] PENICILLIN [facility] NO KNOWN ALLERGIES [facility] EGG WHITE [facility] PEANUT [facility] SOY PROTEIN [facility] NO ALLERGY INFORMATION AVAILABLE [facility]ENICILLINS [facility] AD[facility] ANTIHISTAMINES - ALKYLAMINE [facility] NO KNOWN ALLERGIES [facility] LATEX [facility] GRAMINEAE POLLENS [facility] DAPAGLIFLOZIN [facility] CANAGLIFLOZIN [facility] MORPHINE [facility] CODEINE [facility] CEPHALEXIN [facility] CLINDAMYCIN [facility] BACITRACIN [facility] SIMVASTATIN [facility] AMOX[facility]ILLIN [facility] GABAPENTIN [facility] TIZANIDINE [facility] LEVOFLOXACIN [facility] LISINOPRIL [facility] BEE VENOM PROTEIN (HONEY BEE) [facility] NEBIVOLOL [facility] ASPIRIN [facility] AMOXICILLIN-POT CLAVULANATE [facility] TRIPROLIDINE-PSEUDOEPHEDRINE [facility] CIPROFLOXACIN (BULK) [facility] latex [facility] Results Social History date description facility 2020-10-26 00:00:00 Never smoker [facility] Social History date description facility 2020-10-26 00:00:00 Never smoker [facility] date description facility [id number]
== END 2020-11-25 21:17 | disposition home or self-care (01) ==
LOC: ED 16:33
DX: I73.9 Peripheral vascular disease, unspecified (principal); I99.8 Other disorder of circulatory system; G82.20 Paraplegia, unspecified
CPT/HCPCS: 75635; 80053; 83605; 85025; 85610; 93971; 96372; 99284; J1650; Q9967

== ENCOUNTER 2020-12-17 10:09 | Outpatient (CLI) | payer MEDICAID ==
[2020-12-17 11:43] LABS: BASOPHILS # (AUTO) 0.1 10^3/uL (0.0-0.1); BASOPHILS % (AUTO) 0.9 %; EOSINOPHILS # (AUTO) 0.2 10^3/uL (0.0-0.7); EOSINOPHILS % (AUTO) 3.4 %; HGB - HEMOGLOBIN 12.3 g/dL (12.0-16.0); LYMPHOCYTES # (AUTO) 2.1 10^3/uL (1.5-3.5); LYMPHOCYTES % (AUTO) 36.6 %; MEAN CORPUSCULAR HEMOGLOBIN 23.9 pg (27.0-31.0); MEAN CORPUSCULAR HGB CONC 30.4 g/dL (32.0-36.0); MEAN CORPUSCULAR VOLUME 78.6 fL (81.0-99.0); MEAN PLATELET VOLUME 9.9 fL (7.9-10.8); MONOCYTES # (AUTO) 0.5 10^3/uL (0.0-1.0); MONOCYTES % (AUTO) 9.5 %; NEUTROPHILS # (AUTO) 2.8 10^3/uL (1.5-6.6); NEUTROPHILS % (AUTO) 49.4 %; PLT - PLATELET COUNT 320 10^3/uL (130-450); RED BLOOD COUNT 5.14 10^6/uL (4.20-5.40); RED CELL DISTRIBUTION WIDTH 15.8 % (12.0-15.0); WHITE BLOOD COUNT 5.7 x10^3/uL (4.8-10.8)
[2020-12-17 11:59] LABS: ALBUMIN 3.8 g/dL (3.2-5.5); ALBUMIN/GLOBULIN RATIO 1.2 (1.0-2.2); BILIRUBIN,TOTAL 0.6 mg/dL (0.2-1.0); CALCIUM 8.8 mg/dL (8.5-10.3); CREATININE 0.4 mg/dL (0.4-1.0); TOTAL PROTEIN 7.1 g/dL (6.7-8.2)
== END 2020-12-17 10:10 | disposition home or self-care (01) ==
LOC: LAB.N 10:09
PROVIDERS: ATTEND Physician Assistant Medical
DX: R51.9 Headache, unspecified (principal)
CPT/HCPCS: 36415; 80053; 85025

== ENCOUNTER 2020-12-18 09:51 | Outpatient (CLI) | payer MEDICAID ==
--- NOTE | 2020-12-18 10:36 | CT Report ---
PROCEDURE: HEAD WO INDICATIONS: HYDROCEPHALUS WITH OPERATING SHUNT TECHNIQUE: Noncontrast 4.5 mm thick angled axial sections acquired from the foramen magnum to the vertex. For r adiation dose reduction, the following was used: automated exposure control, adjustment of mA and/or kV according to patient size. COMPARISON: No prior head imaging is available for review at the time of this dictation. FINDINGS: Image quality: Excellent. CSF spaces: There is a right parietal approach ventriculostomy catheter, with the tip seen within th e posterior horn of the right lateral ventricle. No sindy hydrocephalus can be seen. Basal cisterns a re patent. No extra-axial fluid collections. 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 N o midline shift. No intracranial masses or hemorrhage. Schaeffer-white matter interface is normal. Skull and face: Calvarium and visualized facial bones are intact, without suspicious lesions. Sinuses: Visualized sinuses and mastoids are clear. IMPRESSION: Right parietal approach ventriculostomy catheter, which appears to be in satisfactory position. No fr ank hydrocephalus. 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 Reviewed by: Marck Gee MD on 12/18/2020 9:[address] [facility] Approved by: Marck Gee MD on 12/18/2020 9:[address] [facility] Station ID: [id number]
--- NOTE | 2020-12-18 10:37 | XRAY Report ---
PROCEDURE: Abdomen 1 View X-Ray INDICATIONS: HYDROCEPHALUS WITH OPERATING SHUNT TECHNIQUE: 1 view of the abdomen were acquired. COMPARISON: None. FINDINGS: Surgical changes and devices: Partially visualized a presumed ventriculoperitoneal shunt is seen. The re are multiple twists in the catheter projecting in the right upper quadrant.. Bowel: No pneumoperitoneum. The bowel gas pattern is normal. Soft tissues: No masses; visualized solid organ contours appear normal in size. No suspicious abdom inal calcifications. Bones: No suspicious bony abnormalities. Severe bilateral chronic hip dysplasia. Lumbar spondylosis and scoliosis. IMPRESSION: Partially visualized ventriculoperitoneal shunt with the tip projecting in the pelvis. Of note, there are numerous twist of the catheter projecting in the right upper quadrant. No definite acute kink is seen. Recommend clinical correlation to determine functional status. Reviewed by: Corby Zavaleta MD on 12/18/2020 10:[address] [facility] Approved by: Corby Zavaleta MD on 12/18/2020 10:[address] [facility] Station ID: [id number]
--- NOTE | 2020-12-18 10:39 | XRAY Report ---
PROCEDURE: Skull 2 View INDICATIONS: HYDROCEPHALUS WITH OPERATING SHUNT TECHNIQUE: 2 view(s) of the skull acquired. COMPARISON: Correlation is made with the accompanying head CT and chest and abdomen plain films 12/18 FINDINGS: There is a right parietal approach ventriculostomy catheter seen, which is better seen on the accompanying CT examination. The limits of this study, no findings of kinks or discontinuities ca n be seen involving the shunt catheter tubing. Bones: No fractures. No suspicious bony lesions. Visualized sinuses appear clear. Soft tissues: No soft tissue calcifications. No suspicious soft tissue densities. IMPRESSION: Right frontal approach ventriculostomy catheter, without focal abnormality seen on these images. Reviewed by: Marck Gee MD on 12/18/2020 9:37 AM [facility] Approved by: Marck Gee MD on 12/18/2020 9:37 AM [facility] Station ID: [id number]
--- NOTE | 2020-12-18 10:42 | XRAY Report ---
PROCEDURE: Chest 1 View X-Ray INDICATIONS: HYDROCEPHALUS WITH OPERATING SHUNT TECHNIQUE: One view of the chest was acquired. COMPARISON: Correlation is made with the accompanying head CT, skull plain films, and abdomen plain film 12/18/2020. FINDINGS: Surgical changes and devices: There is right-sided ventriculoperitoneal shunt catheter tubing seen, w ith the tip coming to rest within the right pelvis. No sindy discontinuities or abnormal kinks can be seen. Lungs and pleura: No pleural effusions or pneumothorax. Lungs are clear. Mediastinum: Mediastinal contours appear normal. Heart size is normal. Bones and chest wall: Prominent lumbar abnormalities are seen, with S-shaped scoliosis. Mild levocon vex thoracic scoliosis can be seen. No suspicious bony lesions. Overlying soft tissues appear unrema rkable. IMPRESSION: Right-sided ventriculoperitoneal shunt catheter tubing, without sindy abnormality. Bony abnormalities are seen, including bony irregularity and S-shaped scoliosis of the lumbar spine. Reviewed by: Marck Gee MD on 12/18/2020 9:40 AM [facility] Approved by: Marck Gee MD on 12/18/2020 9:40 AM [facility] Station ID: [id number]
== END 2020-12-18 09:52 | disposition home or self-care (01) ==
LOC: DI 09:51
PROVIDERS: ATTEND Physician Assistant Medical
DX: G91.8 Other hydrocephalus (principal); Z98.2 Presence of cerebrospinal fluid drainage device; M47.816 Spondylosis without myelopathy or radiculopathy, lumbar region; M41.86 Other forms of scoliosis, lumbar region

== ENCOUNTER 2021-08-04 13:36 | Outpatient (CLI) | payer MEDICAID ==
--- NOTE | 2021-08-04 14:30 | XRAY Report ---
PROCEDURE: Shuntogram INDICATIONS: COMPLICATION OF SHUNT TECHNIQUE: AP and lateral skull, AP neck, AP chest, AP abdomen and pelvis plain films COMPARISON: None. FINDINGS: A ventriculoperitoneal shunt is in place. The shunt catheter is discontinuous in the neck, where ther e is now a 4.3 cm gap. It otherwise appears continuous. Spinal dysraphism is noted. Additionally, there is severe scoliotic curvature. 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 Heart size is within normal limits. Lungs are clear. Bowel gas pattern is within normal limits. IMPRESSION: The ventriculoperitoneal shunt catheter is discontinuous in the neck. There is a 4.3 cm gap between c atheter fragments. Reviewed by: Sebastián Wood MD on 08/04/2021 2:28 PM PDT Approved by: Sebastián Wood MD on 08/04/2021 2:28 PM PDT Station ID: [id number]
== END 2021-08-04 13:37 | disposition home or self-care (01) ==
LOC: LAB 13:36 → DI 13:37
PROVIDERS: ATTEND Family Medicine
DX: T85.09XA Other mechanical complication of ventricular intracranial (communicating) shunt, initial encounter (principal); G44.89 Other headache syndrome

== ENCOUNTER 2021-08-04 14:21 | Outpatient (CLI) | payer MEDICAID ==
[2021-08-04 14:31] LABS: BASOPHILS # (AUTO) 0.1 10^3/uL (0.0-0.1); BASOPHILS % (AUTO) 0.7 %; EOSINOPHILS # (AUTO) 0.2 10^3/uL (0.0-0.7); EOSINOPHILS % (AUTO) 2.5 %; HCT - HEMATOCRIT 41.5 % (37.0-47.0); HGB - HEMOGLOBIN 13.2 g/dL (12.0-16.0); LYMPHOCYTES # (AUTO) 2.1 10^3/uL (1.5-3.5); LYMPHOCYTES % (AUTO) 28.8 %; MEAN CORPUSCULAR HEMOGLOBIN 25.5 pg (27.0-31.0); MEAN CORPUSCULAR HGB CONC 31.8 g/dL (32.0-36.0); MEAN CORPUSCULAR VOLUME 80.1 fL (81.0-99.0); MEAN PLATELET VOLUME 9.4 fL (7.9-10.8); MONOCYTES # (AUTO) 0.6 10^3/uL (0.0-1.0); NEUTROPHILS # (AUTO) 4.3 10^3/uL (1.5-6.6); NEUTROPHILS % (AUTO) 59.7 %; PLT - PLATELET COUNT 274 10^3/uL (130-450); RED BLOOD COUNT 5.18 10^6/uL (4.20-5.40); RED CELL DISTRIBUTION WIDTH 14.6 % (12.0-15.0); WHITE BLOOD COUNT 7.2 x10^3/uL (4.8-10.8)
[2021-08-04 14:44] LABS: ALBUMIN 3.9 g/dL (3.2-5.5); ALBUMIN/GLOBULIN RATIO 1.1 (1.0-2.2); BILIRUBIN,TOTAL 0.5 mg/dL (0.2-1.0); CALCIUM 9.1 mg/dL (8.5-10.3); CREATININE 0.4 mg/dL (0.4-1.0); POTASSIUM 3.3 mmol/L (3.5-5.0); TOTAL PROTEIN 7.4 g/dL (6.7-8.2)
== END 2021-08-04 23:59 | disposition home or self-care (01) ==
LOC: LAB 14:21
PROVIDERS: ATTEND Family Medicine
DX: G44.89 Other headache syndrome (principal); T85.09XA Other mechanical complication of ventricular intracranial (communicating) shunt, initial encounter
CPT/HCPCS: 36415; 80053; 85025

== ENCOUNTER 2021-09-13 13:07 | Emergency (ER) | payer MEDICAID ==
--- NOTE | 2021-09-13 13:31 | ED Physician Documentation ---
History of Present Illness - Stated complaint Stated Complaint: ABD PX - Chief complaint Chief Complaint: Abd Pain - History obtained from History obtained from: Patient - Additonal information Additional information: 41-year-old woman with paraplegia related to congenital spina bifida and hydrocephalus. She has a CNC LATHE MACHINIST shunt in place which was last revised in childhood. Last 2 months she has been having on and off headaches, better with supine positioning. She was seen by her primary care physician and a little over a month ago had a shuntogram showing a discontinuous shunt in the neck with a 4.3 cm gap between catheter fragments. She continues to have on and off headaches but also has multiple other complaints, difficulty focusing with vision that is subacute but progressive over days. She has upper abdominal pain radiating down and across the belly. She has intermittent nonexertional sharp anterior chest pain that is nonradiating. Over the last day or 2 has urinary frequency and d ysuria. Denies fevers or chills. No diplopia. She has had some nausea. No changes in bowel movements. Review of Systems Ten Systems: 10 systems reviewed and negative Constitutional: reports: Reviewed and negative Eyes: reports: Reviewed and negative Ears: reports: Reviewed and negative PD PAST MEDICAL HISTORY - Past Medical History Cardiovascular: None, Other Respiratory: None Neuro: None, Other Endocrine/Autoimmune: None GI: None OBGYN SPECIALIST: None : Incontinence HEENT: None Psych: None Musculoskeletal: Paraplegia Derm: None - Past Surgical History Past Surgical History: Yes Neuro: CNC LATHE MACHINIST shunt - Present Medications Home Medications: Ambulatory Orders Medication Instructions Recorded Confirmed Cholecalciferol (Vitamin D3) 1,000 unit PO DAILY 08/21/19 03/04/21 [Vitamin D3] Methenamine/Sodium Salicylate [Azo 1 tab PO DAILY 08/21/19 03/04/21 Urinary Tract Defense Tab] Multivitamin [Multivitamins] 1 cap PO DAILY 08/21/19 03/04/21 Calcium Carbonate [Calcium] 500 mg PO DAILY 09/06/20 03/04/21 HYDROcod/ACETAM 5/325 [[place] 5/325] 1 each PO Q6HR PRN 01/28/21 03/04/21 Phenazopyridine [Pyridium] 200 mg PO TID PRN 01/28/21 03/04/21 Ciprofloxacin HCl [Cipro] 500 mg PO BID #20 tablet 09/13/21 Povidone-Iodine 1 each TP QID #120 09/13/21 polyethylene glycoL 3350 [Miralax] 17 gm PO DAILY PRN #1 bottle 09/13/21 - Allergies Allergies/Adverse Reactions: Allergies Allergy/AdvReac Type Severity Reaction Status Date / Time latex Allergy Unknown Verified 09/13/21 13:26 - Social History Does the pt smoke?: No Smoking Status: Never smoker Does the pt drink ETOH?: Yes Does the pt have substance abuse?: No - Immunizations Immunizations are current?: Yes PD ED PE NORMAL - Vitals Vital signs reviewed: Yes - General General: Alert and oriented X 3, Other (She is wheelchair-bound, insensate below the thighs, braces on the legs.) - HEENT HEENT: Other (She has some nystagmus, thick glasses, no obvious difficulty with extraocular movements though.) - Neck Neck: Supple, no meningeal sign - Cardiac Cardiac: RRR, No murmur - Respiratory Respiratory: No respiratory distress, Clear bilaterally - Abdomen Abdomen: Normal bowel sounds, Soft, Other (Mild right upper quadrant tenderness without surgical signs) - Back Back: No CVA TTP, No spinal TTP - Derm Derm: Normal color, Warm and dry - Neuro Neuro: Alert and oriented X 3, Normal speech Results - Vitals Vitals: Vital Signs - 24 hr 09/13/21 09/13/21 09/13/21 13:22 15:28 16:05 Temperature 36.2 C L Heart Rate 102 H 84 93 Respiratory 18 19 19 Rate Blood Pressure 124/95 H 109/75 115/86 H O2 Saturation 100 100 100 09/13/21 09/13/21 17:00 18:37 Temperature Heart Rate 86 81 Respiratory 23 19 Rate Blood Pressure 119/74 113/76 O2 Saturation 100 100 Oxygen O2 Source Room air - Labs Labs: Laboratory Tests 09/13/21 09/13/21 09/13/21 13:33 13:33 16:30 WBC 6.2 RBC 5.45 H Hgb 13.8 Hct 42.9 MCV 78.7 L MCH 25.3 L MCHC 32.2 RDW 14.4 Plt Count 282 MPV 9.6 Neut # (Auto) 3.4 Lymph # (Auto) 2.1 Kemper # (Auto) 0.5 Eos # (Auto) 0.1 Baso # (Auto) 0.1 Absolute Nucleated RBC 0.00 Nucleated RBC % 0.0 Sodium 140 Potassium 3.4 L Chloride 107 Carbon Dioxide 22 Anion Gap 11.0 BUN 14 Creatinine 0.4 Estimated GFR (MDRD) 178 Glucose 83 Calcium 9.4 Total Bilirubin 0.9 AST 13 ALT 12 Alkaline Phosphatase 52 Total Protein 7.3 Albumin 4.3 Globulin 3.0 Albumin/Globulin Ratio 1.4 Lipase 66 H Urine Color YELLOW Urine Clarity SL. CLOUDY Urine pH 6.0 Ur Specific [place] <=1.005 Urine Protein NEGATIVE Urine Glucose (UA) NEGATIVE Urine Ketones 40 H Urine Occult Blood SMALL H Urine Nitrite POSITIVE H Urine Bilirubin NEGATIVE Urine Urobilinogen 0.2 (NORMAL) Ur Leukocyte Esterase MODERATE H Urine RBC 6-10 H Urine WBC >25 H Ur Squamous Epith Cells RARE Squamous Urine Bacteria Few Ur Microscopic Review INDICATED Urine Culture Comments INDICATED Urine HCG, Qual NEGATIVE - Rads (name of study) CT of the head without contrast shows unchanged ventricular caliber compared with November of this year. Radiology: EMP read contemporaneously CT Neck and Chest Radiology: EMP read contemporaneously (Discontinuity of CNC LATHE MACHINIST shunt in neck of 4cm, O/W negative) CT of the abdomen pelvis with IV contrast shows significant instability inspissated stool, nonobstructing left UVJ calculus and potential thrombus in Radiology: EMP read contemporaneously (CT of the abdomen pelvis with IV contrast shows significant instability inspissated stool, nonobstructing left UVJ calculus and potential thrombus in the IVC which may be artifactual.) PD MEDICAL DECISION MAKING - ED course ED course: 41-year-old woman with spina bifida and hydrocephalus presents with multiple complaints including headache, abdominal pain, and feeling like she has a UTI. Differential diagnosis is broad. She has abdominal pain which may be related to constipation on CT. She has evidence of UTI.. She has a known malfunctioning CNC LATHE MACHINIST shunt but her ventricles are not larger. Note made of the radiologist note of possible thrombus in the IVC and this was discussed with the reading radiologist and recommended CT venography of the pelvis to confirm or deny. The repeat study did not show any evidence of thrombus in the IVC. She does self cath so her UTI would be complicated and as such needs 10 days of antibiotics at least. Also we are treating her constipation. She does not use iodine or a disinfectant before self cathing and was prescribed iodine. Departure - Departure Disposition: 01 Home, Self Care Clinical Impression: Abdominal pain, Obstructed CNC LATHE MACHINIST shunt, Headache, Constipation, Complicated UTI (urinary tract infection) Condition: Good Record reviewed to determine appropriate education?: Yes Instructions: ED Constipation, ED UTI Cystitis Female Prescriptions: Ciprofloxacin HCl [Cipro] 500 mg PO BID #20 tablet polyethylene glycoL 3350 [Miralax] 17 gm PO DAILY PRN #1 bottle PRN Reason: Constipation Povidone-Iodine 1 each TP QID #120 Comments: Follow-up with the neurosurgeon as scheduled. Return for new or worsening symptoms. We will culture your urine, the results should be done in 48-72 hours. If an antibiotic change is necessary we will call you. Return if worse in the meantime, especially if you develop increasing flank pain, fevers, or cannot keep down the medication.
[2021-09-13 13:37] LABS: BASOPHILS # (AUTO) 0.1 10^3/uL (0.0-0.1); EOSINOPHILS # (AUTO) 0.1 10^3/uL (0.0-0.7); EOSINOPHILS % (AUTO) 1.3 %; HCT - HEMATOCRIT 42.9 % (37.0-47.0); HGB - HEMOGLOBIN 13.8 g/dL (12.0-16.0); LYMPHOCYTES # (AUTO) 2.1 10^3/uL (1.5-3.5); LYMPHOCYTES % (AUTO) 33.5 %; MEAN CORPUSCULAR HEMOGLOBIN 25.3 pg (27.0-31.0); MEAN CORPUSCULAR HGB CONC 32.2 g/dL (32.0-36.0); MEAN CORPUSCULAR VOLUME 78.7 fL (81.0-99.0); MEAN PLATELET VOLUME 9.6 fL (7.9-10.8); MONOCYTES # (AUTO) 0.5 10^3/uL (0.0-1.0); MONOCYTES % (AUTO) 8.1 %; NEUTROPHILS # (AUTO) 3.4 10^3/uL (1.5-6.6); NEUTROPHILS % (AUTO) 55.9 %; PLT - PLATELET COUNT 282 10^3/uL (130-450); RED BLOOD COUNT 5.45 10^6/uL (4.20-5.40); RED CELL DISTRIBUTION WIDTH 14.4 % (12.0-15.0); WHITE BLOOD COUNT 6.2 x10^3/uL (4.8-10.8)
[2021-09-13] MEDS ORDERED: IOVERSOL 320 100 ML VIAL IVP ONE ×3 (13:39→19:11)
[2021-09-13 13:51] LABS: ALBUMIN 4.3 g/dL (3.2-5.5); ALBUMIN/GLOBULIN RATIO 1.4 (1.0-2.2); BILIRUBIN,TOTAL 0.9 mg/dL (0.2-1.0); CALCIUM 9.4 mg/dL (8.5-10.3); CREATININE 0.4 mg/dL (0.4-1.0); POTASSIUM 3.4 mmol/L (3.5-5.0); TOTAL PROTEIN 7.3 g/dL (6.7-8.2)
--- NOTE | 2021-09-13 16:09 | CT Report ---
PROCEDURE: HEAD WO INDICATIONS: Headaches, broken HOUSE COORDINATOR shunt TECHNIQUE: Noncontrast 4.5 mm thick angled axial sections acquired from the foramen magnum to the vertex. For r adiation dose reduction, the following was used: automated exposure control, adjustment of mA and/or kV according to patient size. COMPARISON: 12/18/2020 CT FINDINGS: These images again demonstrate postsurgical changes of right transverse parietal craniotomy. The cath eter is in unchanged position, terminating in the atrium of the right lateral ventricle. Ventricular caliber is not significantly changed from the prior study. The third ventricle has a maximum transver se diameter of 5-6 mm, stable from comparison study. The basilar cisterns are patent. There is no bing dence of mass effect or midline shift. Brain parenchymal attenuation is within normal limits. No evid ence of acute intracranial hemorrhage or abnormal extra-axial fluid collection. Orbital structures ar e normal. Partially visualized paranasal sinuses and mastoid air cells are clear. No acute osseous ab normality. IMPRESSION: When compared with 12/18/2020 examination, no significant change in ventricular caliber and unchanged position of ventriculostomy shunt tubing. Reviewed by: Jagjit Cardoso MD on 09/13/2021 4:00 PM PDT Approved by: Jagjit Cardoso MD on 09/13/2021 4:00 PM PDT Station ID: [id number]
--- NOTE | 2021-09-13 16:17 | CT Report ---
PROCEDURE: SOFT TISSUE NECK WO INDICATIONS: headache, shunt TECHNIQUE: Non-contrast 3.0 mm axial sections acquired from the sella to the aortic arch. Additiona l oblique axial 3.0 mm sections acquired through the pharynx. 3 mm thick coronal reformats were gene rated. For radiation dose reduction, the following was used: automated exposure control, adjustment of mA and/or kV according to patient size. COMPARISON: 08/04/2021 shuntogram FINDINGS: A ventriculoperitoneal shunt catheter is redemonstrated in the right neck. A segment of discontinuity is approximately 4 cm in length, unchanged from the comparison shuntogram radiographs. Included portions of the lung apices are clear. The unenhanced neck soft tissues are within normal li mits no significant abnormality identified. Air digestive tract is widely patent. No gross orbital ab normality. Paranasal sinuses and mastoid air cells are clear. No acute or suspicious osseous lesion. IMPRESSION: Ventricular peritoneal shunt tubing in the right neck with a segment of discontinuity measuring appro ximately 4 cm as seen on the comparison radiographs. Reviewed by: Jagjit Cardoso MD on 09/13/2021 4:15 PM PDT Approved by: Jagjit Cardoso MD on 09/13/2021 4:15 PM PDT Station ID: [id number]
--- NOTE | 2021-09-13 16:19 | CT Report ---
PROCEDURE: CHEST WO INDICATIONS: Shunt Issues, ab pain TECHNIQUE: Noncontrast 1mm axial images were acquired from the pulmonary apices to the posterior costophrenic an gles. Axial 5 mm soft tissue kernel reconstructions were performed as well as 8 mm axial MIP and cor onal and sagittal 5 mm reformations. For radiation dose reduction, the following was used: automate d exposure control, adjustment of mA and/or kV according to patient size. COMPARISON: Chest radiograph 12/18/2020 and shuntogram 08/04/2021 FINDINGS: A ventriculoperitoneal shunt catheter traverses the right anterior thoracic soft tissues. There is no evidence of kinking or discontinuity in the chest. Central airways, lungs, and pleural spaces are clear other than a calcified granuloma in the right lo wer lobe. Unremarkable unenhanced cardiac and mediastinal vascular structures. Thoracic osseous structures demo nstrate no acute or suspicious lesion. Scoliotic curvature redemonstrated. IMPRESSION: Thoracic segments of the ventricular peritoneal shunt appear intact. No acute finding in the chest otherwise. Reviewed by: Jagjit Cardoso MD on 09/13/2021 4:17 PM PDT Approved by: Jagjit Cardoso MD on 09/13/2021 4:17 PM PDT Station ID: [id number]
--- NOTE | 2021-09-13 16:29 | CT Report ---
PROCEDURE: Abdomen/Pelvis W INDICATIONS: IV only, upper abd pain CONTRAST: IV CONTRAST: Optiray 320 ml: 80 PO CONTRAST: *NO PO CONTRAST TECHNIQUE: After the administration of intravenous contrast, 5 mm thick sections acquired from the diaphragms to the symphysis. 5 mm thick coronal and sagittal reformats were acquired. For radiation dose reducti on, the following was used: automated exposure control, adjustment of mA and/or kV according to can ent size. COMPARISON: 11/25/2020 and 12/18/2020 FINDINGS: Ventriculoperitoneal shunt terminates in the right upper abdomen. There is no collection surrounding the shunt termination. No evidence of tubing discontinuity or kinking in the abdomen. There is no abnormally dilated or obviously thickened loop of bowel. No pericolonic or mesenteric inf lammatory changes. Normal CT appearance of the liver, spleen, pancreas, gallbladder, and adrenal glands. The kidneys are incompletely distended and malrotated. There is no evidence of hydronephrosis. There is a nonobstructing calculus within the left UPJ measuring approximately 7 mm. No other urinary tract calculus identified. Hypoplastic and distended urinary bladder with wall thickening and trabeculatio n and numerous diverticula. No perivesicular fat stranding. Left ureterocele noted. Nonaneurysmal abdominal aorta. Central filling defect within the inferior aspect of the IVC extending into the bilateral and iliac v eins. This may be artifactual although due to mixing of contrast opacified and nonopacified blood, al though thrombus would appear similar. Impacted stool within the rectum. Small volume free pelvic fluid is within physiologic normal limits. Grossly unremarkable uterus and ovaries. No threshold enlarged pelvic or inguinal lymph node. No acute or suspicious osseous lesion. Spinal dysraphism and associated malalignment is similar to e comparison examinations. IMPRESSION: Normal appearance of the ventriculoperitoneal shunt within the abdomen. Significantly inspissated and impacted stool within the rectum. Central filling defect in the inferior aspect of the IVC may be artifactual due to admixture of contr ast opacified and nonopacified blood, although an acute thrombus cannot be strictly excluded. Nonobstructing left UVJ calculus measuring 7 mm. No findings of hydronephrosis or hydroureter. Hypoplastic and distended urinary bladder with wall thickening and significant trabeculation with mul tiple diverticula. No CT findings of acute cystitis, although urinalysis is more sensitive. Reviewed by: Jagjit Cardoso MD on 09/13/2021 4:28 PM PDT Approved by: Jagjit Cardoso MD on 09/13/2021 4:28 PM PDT Station ID: [id number]
[2021-09-13 16:53] LABS: BILIRUBIN,URINE NEGATIVE (NEGATIVE); GLUCOSE, URINE (UA) NEGATIVE (NEGATIVE); KETONES,URINE (UA) 40 mg/dL (NEGATIVE); LEUKOCYTE ESTERASE, URINE MODERATE (NEGATIVE); NITRITE,URINE POSITIVE (NEGATIVE); OCCULT BLOOD,URINE SMALL (NEGATIVE); PROTEIN,URINE NEGATIVE (NEGATIVE); UROBILINOGEN,URINE 0.2 (NORMAL) E.U./dL (NORMAL)
[2021-09-13 16:54] LABS: CLARITY,URINE SL. CLOUDY (CLEAR); HCG UR QUAL NEGATIVE
[2021-09-13 17:07] LABS: BACTERIA,URINE Few /HPF (None Seen); SQUAMOUS EPITHELIAL CELL,UR RARE Squamous (<= Few); WBC,URINE >25 /HPF (0-5)
[2021-09-13] MEDS ORDERED: CIPROFLOXACIN 250 MG TABLET PO STA (17:38)
--- NOTE | 2021-09-13 18:54 | CT Report ---
PROCEDURE: PELVIS W INDICATIONS: IV only, abnormal CT, do as venogram 3 min delay CONTRAST: IV CONTRAST: Optiray 320 ml: 80 PO CONTRAST: *NO PO CONTRAST TECHNIQUE: After the administration of intravenous contrast, 5 mm thick sections acquired from the iliac crests to the symphysis. 5 mm thick coronal and sagittal reformats were acquired. For radiation dose reduc tion, the following was used: automated exposure control, adjustment of mA and/or kV according to pa tient size. COMPARISON: CT abdomen and pelvis 09/13/2021. FINDINGS: Image quality: Excellent. Peritoneum and bowel: Contrast enhanced bowel loops demonstrate normal wall thickness and caliber. No free fluid or air. Genitourinary: Diffuse urinary bladder wall thickening with severe trabeculation and multiple diverti culi stable. Nodes and vessels: No iliac, pelvic, or inguinal adenopathy. Iliac vessels demonstrate normal size and enhancement. Normal contrast opacification of the visualized IVC and pelvic venous vasculature. Bones: No suspicious bony lesions. Miscellaneous: No inguinal hernias. Partially visualized ventriculoperitoneal shunt is stable. IMPRESSION: No evidence of thrombus involving the IVC or pelvic venous vasculature. Reviewed by: Flora Dawkins MD, PhD on 09/13/2021 6:53 PM PDT Approved by: Flora Dawkins MD, PhD on 09/13/2021 6:53 PM PDT Station ID: [id number]
[2021-09-13] MEDS ORDERED: MAGNESIUM CITRATE 296 ML BOTTLE PO STA (19:18)
[2021-09-13 20:06] VITALS: BP 118/99
== END 2021-09-13 19:35 | disposition home or self-care (01) ==
LOC: ED 13:07
DX: T83.518A Infection and inflammatory reaction due to other urinary catheter, initial encounter (principal); N39.0 Urinary tract infection, site not specified; T85.09XA Other mechanical complication of ventricular intracranial (communicating) shunt, initial encounter; Y82.8 Other medical devices associated with adverse incidents; G82.20 Paraplegia, unspecified; Q05.9 Spina bifida, unspecified; Z99.3 Dependence on wheelchair
CPT/HCPCS: 36415; 70450; 70490; 71250; 72193; 74177; 80053; 81001; 81025; 83690; 85025; 87077; 87086; 87181; 99284; A9270; Q9967; 81003

== ENCOUNTER 2021-10-19 08:08 | Outpatient (CLI) | payer MEDICAID ==
[2021-10-19 12:27] LABS: BASOPHILS # (AUTO) 0.1 10^3/uL (0.0-0.1); EOSINOPHILS # (AUTO) 0.2 10^3/uL (0.0-0.7); EOSINOPHILS % (AUTO) 3.4 %; HCT - HEMATOCRIT 40.9 % (37.0-47.0); HGB - HEMOGLOBIN 12.8 g/dL (12.0-16.0); LYMPHOCYTES # (AUTO) 1.9 10^3/uL (1.5-3.5); LYMPHOCYTES % (AUTO) 36.1 %; MEAN CORPUSCULAR HEMOGLOBIN 25.2 pg (27.0-31.0); MEAN CORPUSCULAR HGB CONC 31.3 g/dL (32.0-36.0); MEAN CORPUSCULAR VOLUME 80.5 fL (81.0-99.0); MEAN PLATELET VOLUME 10.4 fL (7.9-10.8); MONOCYTES # (AUTO) 0.5 10^3/uL (0.0-1.0); NEUTROPHILS # (AUTO) 2.6 10^3/uL (1.5-6.6); NEUTROPHILS % (AUTO) 50.3 %; PLT - PLATELET COUNT 248 10^3/uL (130-450); RED BLOOD COUNT 5.08 10^6/uL (4.20-5.40); RED CELL DISTRIBUTION WIDTH 14.6 % (12.0-15.0); WHITE BLOOD COUNT 5.2 x10^3/uL (4.8-10.8)
[2021-10-19 12:54] LABS: ALBUMIN 3.9 g/dL (3.2-5.5); ALBUMIN/GLOBULIN RATIO 1.3 (1.0-2.2); ALKALINE PHOSPHATASE 40 IU/L (42-121); ALT ALANINE AMINOTRANSFERASE 14 IU/L (10-60); AST ASPARTATE AMINOTRANSFERASE 15 IU/L (10-42); BILIRUBIN,TOTAL 0.4 mg/dL (0.2-1.0); BUN - BLOOD UREA NITROGEN 17 mg/dL (6-20); CALCIUM 8.7 mg/dL (8.5-10.3); CARBON DIOXIDE - CO2 23 mmol/L (21-32); CHLORIDE 105 mmol/L (101-111); CHOL/HDL RATIO 3.1 (<4.4); CHOLESTEROL 181 mg/dL; CREATININE 0.4 mg/dL (0.4-1.0); GFR - MDRD 178 (>89); GLUCOSE 92 mg/dL (70-100); HDL CHOLESTEROL 59 mg/dL; LDL CHOLESTEROL,CALCULATED 110 mg/dL; LDL/HDL RATIO 1.9 (<4.4); POTASSIUM 3.6 mmol/L (3.5-5.0); SODIUM 135 mmol/L (135-145); TRIGLYCERIDES 59 mg/dL; VLDL CHOLESTEROL 12 mg/dL
[2021-10-19 13:11] LABS: THYROID STIMULATING HORMONE 2.79 uIU/mL (0.34-5.60)
== END 2021-10-19 08:09 | disposition home or self-care (01) ==
LOC: LAB.N 08:08
PROVIDERS: ATTEND Family Medicine
DX: Q05.2 Lumbar spina bifida with hydrocephalus (principal); G82.20 Paraplegia, unspecified; N31.9 Neuromuscular dysfunction of bladder, unspecified; Z98.2 Presence of cerebrospinal fluid drainage device
CPT/HCPCS: 36415; 80053; 80061; 83721; 84443; 85025

== ENCOUNTER 2022-06-15 08:00 | Outpatient (CLI) | payer MEDICAID | END 2022-06-15 23:59 | disposition home or self-care (01) | LOC: LAB.N 08:00 | PROVIDERS: ATTEND Registered Nurse | DX: N10 Acute pyelonephritis (principal) | CPT/HCPCS: 87077; 87086; 87181 ==

== ENCOUNTER 2022-11-03 08:00 | Outpatient (CLI) | payer MEDICAID ==
[2022-11-03 18:17] LABS: BASOPHILS # (AUTO) 0.1 10^3/uL (0.0-0.1); BASOPHILS % (AUTO) 0.8 %; EOSINOPHILS # (AUTO) 0.1 10^3/uL (0.0-0.7); EOSINOPHILS % (AUTO) 1.8 %; HCT - HEMATOCRIT 42.9 % (37.0-47.0); LYMPHOCYTES % (AUTO) 27.9 %; MEAN CORPUSCULAR HEMOGLOBIN 24.1 pg (27.0-31.0); MEAN CORPUSCULAR HGB CONC 30.3 g/dL (32.0-36.0); MEAN CORPUSCULAR VOLUME 79.6 fL (81.0-99.0); MEAN PLATELET VOLUME 10.5 fL (7.9-10.8); MONOCYTES # (AUTO) 0.6 10^3/uL (0.0-1.0); MONOCYTES % (AUTO) 8.1 %; NEUTROPHILS # (AUTO) 4.4 10^3/uL (1.5-6.6); NEUTROPHILS % (AUTO) 61.3 %; PLT - PLATELET COUNT 361 10^3/uL (130-450); RED BLOOD COUNT 5.39 10^6/uL (4.20-5.40); RED CELL DISTRIBUTION WIDTH 14.3 % (12.0-15.0); WHITE BLOOD COUNT 7.2 x10^3/uL (4.8-10.8)
[2022-11-03 18:19] LABS: ALBUMIN/GLOBULIN RATIO 1.1 (1.0-2.2); BILIRUBIN,TOTAL 0.3 mg/dL (0.2-1.0); CALCIUM 9.4 mg/dL (8.5-10.3); CREATININE 0.5 mg/dL (0.4-1.0); CRP - C-REACTIVE PROTEIN 1.1 mg/dL (0-1.0); POTASSIUM 3.8 mmol/L (3.5-5.0); TOTAL PROTEIN 7.5 g/dL (6.7-8.2)
== END 2022-11-03 23:59 | disposition home or self-care (01) ==
LOC: LAB.N 08:00
PROVIDERS: ATTEND Registered Nurse
DX: R10.0 Acute abdomen (principal)
CPT/HCPCS: 36415; 80053; 85025; 86140; 87086; 87181

== ENCOUNTER 2022-11-15 08:00 | Outpatient (CLI) | payer MEDICARE, MEDICAID | END 2022-11-15 23:59 | disposition home or self-care (01) | LOC: LAB.N 08:00 | PROVIDERS: ATTEND Nurse Practitioner | DX: R30.0 Dysuria (principal) | CPT/HCPCS: 87086 ==

== ENCOUNTER 2023-04-13 09:01 | Outpatient (CLI) | payer MEDICARE, MEDICAID ==
--- NOTE | 2023-04-13 15:32 | CT Report ---
PROCEDURE: ABDOMEN/PELVIS WO INDICATIONS: NEUROGINC BLADDER TECHNIQUE: Noncontrast 5 mm thick sections acquired from the diaphragms to the symphysis. 5 mm coronal and sagi ttal reformats were then performed. For radiation dose reduction, the following was used: automated exposure control, adjustment of mA and/or kV according to patient size. COMPARISON: CT abdomen pelvis 09/25/2021. FINDINGS: Visualized lung bases: No pleural effusion. Calcified right lower lobe granuloma as before. Liver and biliary tree: Unremarkable noncontrast appearance. Gallbladder: No radiopaque cholelithiasis. Spleen: Unremarkable noncontrast appearance. Pancreas: Unremarkable noncontrast appearance. Adrenal glands: Not well visualized. Kidneys and ureters: Redemonstrated stone at the left renal pelvis, 1.3 cm, internal density 1317 Jesica nsfield units. There is probable mild left hydronephrosis present. No definite or substantial right h ydroureteronephrosis. Gastrointestinal tract: No evidence of small bowel obstruction. Large rectal stool ball present. Peritoneal cavity: No free air. Trace nonspecific pelvic free fluid. Partially imaged tubing terminat es within the pelvis, probable ventricular shunt catheter tubing. Bladder: Thick-walled. Not overtly distended. Trabeculated appearance with presence of diverticula be tter imaged on prior CT. A 2-3 mm stone is present in the bladder lumen. Pelvic organs: Unremarkable noncontrast appearance. Vasculature: No abdominal aortic aneurysm. Musculoskeletal: Spinal dysraphism and associated malalignment not substantially changed. 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 IMPRESSION: 1. Urinary bladder is not overly distended at the time of the exam. Thick-walled appearance of the ur inary bladder probably related to trabeculation/presence of diverticula better seen on the prior CT, correlation with symptoms and/or urinalysis for a cystitis may be helpful however. A small stone is p resent within the urinary bladder. 2. Redemonstrated stone at the left renal pelvis. Mild left hydronephrosis is present. 3. Large rectal stool ball present which may place the patient at risk for stercoral colitis. Reviewed by: Cedric Young MD on 04/13/2023 3:31 PM PDT Approved by: Cedric Young MD on 04/13/2023 3:31 PM PDT Station ID: [id number]
== END 2023-04-13 09:02 | disposition home or self-care (01) ==
LOC: DI 09:01
PROVIDERS: ATTEND Urology
DX: N13.2 Hydronephrosis with renal and ureteral calculous obstruction (principal); N31.9 Neuromuscular dysfunction of bladder, unspecified; Q05.4 Unspecified spina bifida with hydrocephalus; Z78.9 Other specified health status; N21.0 Calculus in bladder

== ENCOUNTER 2023-05-08 08:21 | Outpatient (CLI) | payer MEDICARE, MEDICAID ==
[2023-05-08 11:58] LABS: BASOPHILS # (AUTO) 0.1 10^3/uL (0.0-0.1); BASOPHILS % (AUTO) 1.1 %; EOSINOPHILS # (AUTO) 0.2 10^3/uL (0.0-0.7); EOSINOPHILS % (AUTO) 5.1 %; HCT - HEMATOCRIT 41.1 % (37.0-47.0); HGB - HEMOGLOBIN 12.7 g/dL (12.0-16.0); LYMPHOCYTES # (AUTO) 1.6 10^3/uL (1.5-3.5); LYMPHOCYTES % (AUTO) 34.7 %; MEAN CORPUSCULAR HEMOGLOBIN 24.5 pg (27.0-31.0); MEAN CORPUSCULAR HGB CONC 30.9 g/dL (32.0-36.0); MEAN CORPUSCULAR VOLUME 79.3 fL (81.0-99.0); MEAN PLATELET VOLUME 10.3 fL (7.9-10.8); MONOCYTES # (AUTO) 0.4 10^3/uL (0.0-1.0); NEUTROPHILS # (AUTO) 2.3 10^3/uL (1.5-6.6); NEUTROPHILS % (AUTO) 49.7 %; PLT - PLATELET COUNT 294 10^3/uL (130-450); RED BLOOD COUNT 5.18 10^6/uL (4.20-5.40); RED CELL DISTRIBUTION WIDTH 14.2 % (12.0-15.0); WHITE BLOOD COUNT 4.7 x10^3/uL (4.8-10.8)
[2023-05-08 12:20] LABS: THYROID STIMULATING HORMONE 2.77 uIU/mL (0.34-5.60)
[2023-05-08 21:30] LABS: ALBUMIN 3.7 g/dL (3.2-5.5); ALBUMIN/GLOBULIN RATIO 1.1 (1.0-2.2); ALKALINE PHOSPHATASE 43 IU/L (42-121); ALT ALANINE AMINOTRANSFERASE 12 IU/L (10-60); AST ASPARTATE AMINOTRANSFERASE 13 IU/L (10-42); BILIRUBIN,TOTAL 0.5 mg/dL (0.2-1.0); BUN - BLOOD UREA NITROGEN 19 mg/dL (6-20); CALCIUM 8.7 mg/dL (8.5-10.3); CARBON DIOXIDE - CO2 25 mmol/L (21-32); CHLORIDE 109 mmol/L (101-111); CHOL/HDL RATIO 3.1 (<4.4); CHOLESTEROL 179 mg/dL; CREATININE 0.5 mg/dL (0.4-1.0); GFR - MDRD 137 (>89); GLUCOSE 92 mg/dL (70-100); HDL CHOLESTEROL 57 mg/dL; LDL CHOLESTEROL,CALCULATED 112 mg/dL; POTASSIUM 3.7 mmol/L (3.5-5.0); SODIUM 140 mmol/L (135-145); TOTAL PROTEIN 7.1 g/dL (6.7-8.2); TRIGLYCERIDES 52 mg/dL; VLDL CHOLESTEROL 10 mg/dL
== END 2023-05-08 08:22 | disposition home or self-care (01) ==
LOC: LAB.N 08:21
PROVIDERS: ATTEND Family Medicine
DX: Q05.4 Unspecified spina bifida with hydrocephalus (principal); N31.9 Neuromuscular dysfunction of bladder, unspecified; Z98.2 Presence of cerebrospinal fluid drainage device
CPT/HCPCS: 36415; 80053; 80061; 83721; 84443; 85025

== ENCOUNTER 2023-08-07 16:00 | Outpatient (CLI) | payer MEDICARE, MEDICAID | END 2023-08-07 16:15 | disposition home or self-care (01) | LOC: LAB.N 16:00 | PROVIDERS: ATTEND Registered Nurse | DX: R82.79 Other abnormal findings on microbiological examination of urine (principal) | CPT/HCPCS: 87086; 87181 ==

== ENCOUNTER 2023-08-17 08:19 | Outpatient (CLI) | payer MEDICARE, MEDICAID ==
--- NOTE | 2023-08-17 10:20 | CT Report ---
PROCEDURE: HEAD WO INDICATIONS: SPINA BIDIFA W HYDROCEPHALUS TECHNIQUE: Noncontrast 4.5 mm thick angled axial sections acquired from the foramen magnum to the vertex. For r adiation dose reduction, the following was used: automated exposure control, adjustment of mA and/or kV according to patient size. COMPARISON: 09/13/2021, 12/18/2020 FINDINGS: Image quality: Diagnostic, with note made of motion artifact. CSF spaces: There is a right parietal approach ventriculostomy catheter, with the tip seen within th e posterior aspect of the right lateral ventricle. Scrutiny is given to the ventricles. The ventricles demonstrate stable size and shape compared to the 2020 examination. No findings of acute hydrocephalus. Basal cisterns are patent. No extra-axial fluid collections. Brain: No midline shift. No intracranial masses or hemorrhage. Schaeffer-white matter interface is norm al. Decreased brain parenchymal volume can be seen posteriorly, as before. There is partial atrophy a spect of the corpus callosum. Skull and face: Calvarium and visualized facial bones are intact, without suspicious lesions. Sinuses: Visualized sinuses and mastoids are clear. IMPRESSION: Stable ventricles, unchanged from 2020. No findings of acute hydrocephalus. Stable right parietal approach ventriculostomy catheter. Underlying brain parenchymal abnormalities, with partial atelectasis of the posterior aspect of the c orpus callosum and abnormally decreased brain parenchymal volume posteriorly. Reviewed by: Marck Gee MD on 08/17/2023 9:18 AM KINA Approved by: Marck Gee MD on 08/17/2023 9:18 AM KINA Station ID: [id number]
== END 2023-08-17 08:20 | disposition home or self-care (01) ==
LOC: DI 08:19
PROVIDERS: ATTEND Family Medicine
DX: Q05.4 Unspecified spina bifida with hydrocephalus (principal); Z98.2 Presence of cerebrospinal fluid drainage device; R90.89 Other abnormal findings on diagnostic imaging of central nervous system

== ENCOUNTER 2023-08-17 08:32 | Outpatient (CLI) | payer MEDICARE, MEDICAID ==
--- NOTE | 2023-08-17 10:46 | XRAY Report ---
PROCEDURE: Abdomen 3 View X-Ray INDICATIONS: CONSTIPATION, ACUTE ABDOMEN TECHNIQUE: 2 views of the abdomen were acquired. COMPARISON: None. FINDINGS: Surgical changes and devices: There is a ventricular peritoneal shunt. Bowel: No pneumoperitoneum. The bowel gas pattern is nonspecific nonobstructive. Stool load within normal limits. Soft tissues: No masses; visualized solid organ contours appear normal in size. No suspicious abdom inal calcifications. Bones: No suspicious bony abnormalities. IMPRESSION: 1. Nonspecific nonobstructive bowel gas pattern. Reviewed by: Vidya Fabian MD on 08/17/2023 10:44 AM PDT Approved by: Vidya Fabian MD on 08/17/2023 10:44 AM PDT Station ID: [id number]
== END 2023-08-17 08:33 | disposition home or self-care (01) ==
LOC: DI 08:32
PROVIDERS: ATTEND Registered Nurse
DX: K59.00 Constipation, unspecified (principal); R10.0 Acute abdomen; Q05.4 Unspecified spina bifida with hydrocephalus; Z98.2 Presence of cerebrospinal fluid drainage device; R90.89 Other abnormal findings on diagnostic imaging of central nervous system

== ENCOUNTER 2023-10-05 13:00 | Outpatient (CLI) | payer MEDICARE, MEDICAID | END 2023-10-05 13:15 | disposition home or self-care (01) | LOC: LAB.N 13:00 | PROVIDERS: ATTEND Registered Nurse | DX: R35.0 Frequency of micturition (principal); R82.79 Other abnormal findings on microbiological examination of urine | CPT/HCPCS: 87086; 87181 ==

== ENCOUNTER 2023-11-07 09:59 | Outpatient (CLI) | payer MEDICARE, MEDICAID ==
--- NOTE | 2023-11-07 17:08 | Ultrasound Report ---
PROCEDURE: Retroperitoneal INDICATIONS: NEUROGENIC BLADDER TECHNIQUE: Real-time scanning was performed of the retroperitoneal organs, with image documentation. COMPARISON: CT abdomen and pelvis without contrast dated 04/13/2023. FINDINGS: Kidneys: Kidneys are normal in size. Right kidney measures 9.4 cm long; left kidney measures 7.9 cm long. Right renal cortical thickness is 1.4 cm; left renal cortical thickness is 1.4 cm. No solid m asses. There is mild bilateral hydronephrosis. There is an 8 mm right renal stone, nonobstructing. Th ere is a 9 mm left renal stone, also nonobstructive. Bladder: Pre-void bladder volume is 458.4 mL. Post-void residual is 46.8 mL. Pre-void images demon strate no intraluminal masses or stones. There is bladder wall thickening. Bladder diverticuli are id entified. On pre-void images, bilateral ureteral jets are noted with color Doppler interrogation. (O f note, ureteral jets may not be detectable in up to 25% of cases due to insufficient differences in specific gravity between ureteral and bladder urine). Miscellaneous: No free abdominal fluid. IMPRESSION: 1. There are bilateral renal stones. 2. There is mild bilateral hydronephrosis. It is uncertain whether there may be an obstructing ureter al stone. 3. Findings suggesting neurogenic bladder. Comment: CT renal stone study may be helpful. Reviewed by: Sebastián Wood MD on 11/07/2023 5:07 PM PST Approved by: Sebastián Wood MD on 11/07/2023 5:07 PM PST Station ID: [id number]
== END 2023-11-07 10:00 | disposition home or self-care (01) ==
LOC: DI 09:59
PROVIDERS: ATTEND Physician Assistant Medical
DX: N31.9 Neuromuscular dysfunction of bladder, unspecified (principal); Z87.448 Personal history of other diseases of urinary system; N20.0 Calculus of kidney; N13.30 Unspecified hydronephrosis

== ENCOUNTER 2023-11-13 12:45 | Outpatient (CLI) | payer MEDICARE, MEDICAID | END 2023-11-13 13:00 | disposition home or self-care (01) | LOC: LAB.N 12:45 | PROVIDERS: ATTEND Nurse Practitioner | DX: N39.0 Urinary tract infection, site not specified (principal) | CPT/HCPCS: 87086; 87181 ==

== ENCOUNTER 2023-11-27 11:45 | Outpatient (CLI) | payer MEDICARE, MEDICAID | END 2023-11-27 12:00 | disposition home or self-care (01) | LOC: LAB.N 11:45 | PROVIDERS: ATTEND Registered Nurse | DX: N30.90 Cystitis, unspecified without hematuria (principal) | CPT/HCPCS: 87086 ==

== ENCOUNTER 2024-02-28 15:30 | Outpatient (CLI) | payer MEDICARE, MEDICAID | END 2024-02-28 15:45 | disposition home or self-care (01) | LOC: LAB.N 15:30 | PROVIDERS: ATTEND Physician Assistant Medical | DX: N39.0 Urinary tract infection, site not specified (principal) | CPT/HCPCS: 87086 ==

== ENCOUNTER 2024-03-06 16:45 | Outpatient (CLI) | payer MEDICARE, MEDICAID | END 2024-03-06 17:00 | disposition home or self-care (01) | LOC: LAB.N 16:45 | PROVIDERS: ATTEND Physician Assistant Medical | DX: N30.00 Acute cystitis without hematuria (principal) | CPT/HCPCS: 87077; 87086; 87181 ==

== ENCOUNTER 2024-07-28 10:10 | Outpatient (CLI) | payer MEDICARE, MEDICAID ==
[2024-07-28 12:35] LABS: BASOPHILS # (AUTO) 0.1 10^3/uL (0.0-0.1); BASOPHILS % (AUTO) 1.2 %; EOSINOPHILS # (AUTO) 0.3 10^3/uL (0.0-0.7); HCT - HEMATOCRIT 41.4 % (37.0-47.0); HGB - HEMOGLOBIN 12.5 g/dL (12.0-16.0); LYMPHOCYTES # (AUTO) 1.7 10^3/uL (1.5-3.5); LYMPHOCYTES % (AUTO) 34.1 %; MEAN CORPUSCULAR HEMOGLOBIN 23.9 pg (27.0-31.0); MEAN CORPUSCULAR HGB CONC 30.2 g/dL (32.0-36.0); MEAN CORPUSCULAR VOLUME 79.3 fL (81.0-99.0); MEAN PLATELET VOLUME 10.7 fL (7.9-10.8); MONOCYTES # (AUTO) 0.4 10^3/uL (0.0-1.0); MONOCYTES % (AUTO) 8.4 %; NEUTROPHILS # (AUTO) 2.6 10^3/uL (1.5-6.6); NEUTROPHILS % (AUTO) 51.3 %; PLT - PLATELET COUNT 280 10^3/uL (130-450); RED BLOOD COUNT 5.22 10^6/uL (4.20-5.40); RED CELL DISTRIBUTION WIDTH 14.8 % (12.0-15.0)
[2024-07-28 12:51] LABS: ALBUMIN/GLOBULIN RATIO 1.5 (1.0-2.2); ALKALINE PHOSPHATASE 43 IU/L (42-121); ALT ALANINE AMINOTRANSFERASE 9 IU/L (10-60); AST ASPARTATE AMINOTRANSFERASE 9 IU/L (10-42); BILIRUBIN,TOTAL 0.4 mg/dL (0.2-1.0); BUN - BLOOD UREA NITROGEN 21 mg/dL (6-20); CALCIUM 8.9 mg/dL (8.5-10.3); CARBON DIOXIDE - CO2 25 mmol/L (21-32); CHLORIDE 109 mmol/L (101-111); CHOL/HDL RATIO 3.4 (<4.4); CHOLESTEROL 169 mg/dL; CREATININE 0.4 mg/dL (0.6-1.3); GFR - MDRD 175 (>89); GLUCOSE 83 mg/dL (74-104); HDL CHOLESTEROL 49 mg/dL; LDL CHOLESTEROL,CALCULATED 108 mg/dL; LDL/HDL RATIO 2.2 (<4.4); POTASSIUM 3.7 mmol/L (3.5-4.5); SODIUM 139 mmol/L (135-145); TOTAL PROTEIN 6.6 g/dL (6.4-8.9); TRIGLYCERIDES 59 mg/dL; VLDL CHOLESTEROL 12 mg/dL
[2024-07-28 12:53] LABS: THYROID STIMULATING HORMONE 1.51 uIU/mL (0.34-5.60)
== END 2024-07-28 10:11 | disposition home or self-care (01) ==
LOC: LAB.N 10:10
PROVIDERS: ATTEND Family Medicine
DX: Q05.4 Unspecified spina bifida with hydrocephalus (principal); R00.0 Tachycardia, unspecified; K59.09 Other constipation; N30.00 Acute cystitis without hematuria
CPT/HCPCS: 36415; 80053; 80061; 83721; 84443; 85025